=== PATIENT | female | born 1965 | race Caucasian/White ===

== ENCOUNTER 2017-09-09 18:54 | Inpatient (IN) | payer BC ==
[2017-09-09] MEDS ORDERED: SODIUM CHLORIDE 0.9% 1,000 ML IV STA (19:23)
[2017-09-09] MEDS ORDERED: KETOROLAC 30 MG/ML 1 ML VIAL IVP STA (20:10)
[2017-09-09 20:17] LABS: ALT 54 U/L (9-52); AST 111 U/L (14-36); Albumin 3.3 g/dL (3.5-5.0); Alkaline Phosphatase 388 U/L (38-126); Amylase 213 U/L (30-110); Anion Gap 11 mmol/L; Blood Urea Nitrogen 29 mg/dL (7-17); Calcium 9.3 mg/dL (8.4-10.2); Carbon Dioxide 24 mmol/L (22-30); Chloride 103 mmol/L (98-107); Glucose 180 mg/dL (74-99); Lipase 1929 U/L (23-300); Potassium 3.9 mmol/L (3.5-5.1); Sodium 138 mmol/L (137-145); Total Bilirubin 0.8 mg/dL (0.2-1.3); Total Protein 6.4 g/dL (6.3-8.2)
[2017-09-09 20:18] LABS: Anisocytosis Slight; HCT 28.5 % (34.0-46.0); HGB 9.2 gm/dL (11.4-16.0); Hypochromasia Slight; MCH 28.7 pg (25.0-35.0); MCHC 32.2 g/dL (31.0-37.0); MCV 89.3 fL (80.0-100.0); Mean Platelet Volume 8.3; Poikilocytosis Slight; RBC 3.19 m/uL (3.80-5.40)
[2017-09-09 20:35] LABS: Band Neutrophils % 9 %; Myelocytes % 3 %; Neutrophils % (M) 51 %; Nucleated Red Blood Cells 8 /100 WBC (0-0); Total Cells Counted 200
[2017-09-09 20:36] LABS: Lymphocytes # (M) 1.92 k/uL (1.0-4.8); Myelocytes # (M) 0.19 k/uL (0); Polychromasia Present; WBC 6.2 k/uL (3.8-10.6)
[2017-09-09 20:37] LABS: Platelet Count 95 k/uL (150-450)
--- NOTE | 2017-09-09 20:45 | ED ---
Abdominal Pain HPI - General Chief Complaint: Abdominal Pain Stated Complaint: Flank pain Time Seen by Provider: 09/09/17 19:20 Source: patient, RN notes reviewed Mode of arrival: ambulatory Limitations: no limitations - History of Present Illness Initial Comments: This a 52-year-old female presents emergency Department chief complaint of right sided abdominal, right flank pain. Patient states started a few hours ago. Patient states she has slight nausea denies any vomiting diarrhea constipation. She has no history of kidney stones and has had no prior abdominal surgeries. Patient is have a history of breast cancer with mastectomy. Patient denies any dysuria, hematuria. States that movement does make the symptoms worse and is better at rest. Patient has NO KNOWN DRUG ALLERGIES. - Related Data Home Medications Medication Instructions Recorded Confirmed No Known Home Medications [No 09/09/17 09/09/17 Known Home Medications] Allergies Allergy/AdvReac Type Severity Reaction Status Date / Time No Known Allergies Allergy Verified 09/09/17 19:35 Review of Systems ROS Statement: Those systems with pertinent positive or pertinent negative responses have been documented in the HPI. ROS Other: All systems not noted in ROS Statement are negative. Past Medical History Additional Past Medical History / Comment(s): Breast CA (in remission.) History of Any Multi-Drug Resistant Organisms: None Reported Additional Past Surgical History / Comment(s): Mastectomy Past Psychological History: No Psychological Hx Reported Smoking Status: Current every day smoker Past Alcohol Use History: Rare Past Drug Use History: None Reported General Exam Limitations: no limitations General appearance: alert, in no apparent distress Head exam: Present: atraumatic, normocephalic, normal inspection Eye exam: Present: normal appearance, PERRL, EOMI. Absent: scleral icterus, conjunctival injection, periorbital swelling Neck exam: Present: normal inspection. Absent: tenderness, meningismus, lymphadenopathy Respiratory exam: Present: normal lung sounds bilaterally. Absent: respiratory distress, wheezes, rales, rhonchi, stridor Cardiovascular Exam: Present: regular rate, normal rhythm, normal heart sounds. Absent: systolic murmur, diastolic murmur, rubs, gallop, clicks GI/Abdominal exam: Present: soft, tenderness (Mild right-sided, right flank), normal bowel sounds. Absent: distended, guarding, rebound, rigid Back exam: Absent: CVA tenderness (R), CVA tenderness (L) Skin exam: Present: warm, dry, intact, normal color. Absent: rash Course Vital Signs 09/09/17 19:07 Temperature 97.9 F Pulse Rate 110 H Respiratory 18 Rate Blood Pressure 105/88 O2 Sat by Pulse 98 Oximetry Medical Decision Making - Lab Data Result diagrams: 09/09/17 19:45 09/09/17 19:45 Lab Results 09/09/17 09/09/17 09/09/17 Range/Units 19:45 19:45 20:37 WBC 6.2 (3.8-10.6) k/uL RBC 3.19 L (3.80-5.40) m/uL Hgb 9.2 L (11.4-16.0) gm/dL Hct 28.5 L (34.0-46.0) % MCV 89.3 (80.0-100.0) fL MCH 28.7 (25.0-35.0) pg MCHC 32.2 (31.0-37.0) g/dL RDW 19.0 H (11.5-15.5) % Plt Count 95 L (150-450) k/uL Neutrophils % (Manual) 51 % Band Neutrophils % 9 % Lymphocytes % (Manual) 31 % Monocytes % (Manual) 8 % Myelocytes % 3 % Neutrophils # (Manual) 3.70 (1.3-7.7) k/uL Lymphocytes # (Manual) 1.92 (1.0-4.8) k/uL Monocytes # (Manual) 0.50 (0-1.0) k/uL Myelocytes # (Manual) 0.19 H (0) k/uL Nucleated RBCs 8 H (0-0) /100 WBC Manual Slide Review Performed Polychromasia Present Hypochromasia Slight Poikilocytosis Slight Anisocytosis Slight PT (9.0-12.0) sec INR (<1.2) APTT (22.0-30.0) sec Sodium 138 (137-145) mmol/L Potassium 3.9 (3.5-5.1) mmol/L Chloride 103 (98-107) mmol/L Carbon Dioxide 24 (22-30) mmol/L Anion Gap 11 mmol/L BUN 29 H (7-17) mg/dL Creatinine 0.90 (0.52-1.04) mg/dL Est GFR (MDRD) Af Amer >60 (>60 ml/min/1.73 sqM) Est GFR (MDRD) Non-Af >60 (>60 ml/min/1.73 sqM) Glucose 180 H (74-99) mg/dL Calcium 9.3 (8.4-10.2) mg/dL Total Bilirubin 0.8 (0.2-1.3) mg/dL AST 111 H (14-36) U/L ALT 54 H (9-52) U/L Alkaline Phosphatase 388 H (38-126) U/L Total Protein 6.4 (6.3-8.2) g/dL Albumin 3.3 L (3.5-5.0) g/dL Amylase 213 H (30-110) U/L Lipase 1929 H (23-300) U/L Acetaminophen <10.0 ug/mL Serum Alcohol mg/dL 09/09/17 09/09/17 Range/Units 20:40 20:56 WBC (3.8-10.6) k/uL RBC (3.80-5.40) m/uL Hgb (11.4-16.0) gm/dL Hct (34.0-46.0) % MCV (80.0-100.0) fL MCH (25.0-35.0) pg MCHC (31.0-37.0) g/dL RDW (11.5-15.5) % Plt Count (150-450) k/uL Neutrophils % (Manual) % Band Neutrophils % % Lymphocytes % (Manual) % Monocytes % (Manual) % Myelocytes % % Neutrophils # (Manual) (1.3-7.7) k/uL Lymphocytes # (Manual) (1.0-4.8) k/uL Monocytes # (Manual) (0-1.0) k/uL Myelocytes # (Manual) (0) k/uL Nucleated RBCs (0-0) /100 WBC Manual Slide Review Polychromasia Hypochromasia Poikilocytosis Anisocytosis PT 10.0 (9.0-12.0) sec INR 1.0 (<1.2) APTT 23.9 (22.0-30.0) sec Sodium (137-145) mmol/L Potassium (3.5-5.1) mmol/L Chloride (98-107) mmol/L Carbon Dioxide (22-30) mmol/L Anion Gap mmol/L BUN (7-17) mg/dL Creatinine (0.52-1.04) mg/dL Est GFR (MDRD) Af Amer (>60 ml/min/1.73 sqM) Est GFR (MDRD) Non-Af (>60 ml/min/1.73 sqM) Glucose (74-99) mg/dL Calcium (8.4-10.2) mg/dL Total Bilirubin (0.2-1.3) mg/dL AST (14-36) U/L ALT (9-52) U/L Alkaline Phosphatase (38-126) U/L Total Protein (6.3-8.2) g/dL Albumin (3.5-5.0) g/dL Amylase (30-110) U/L Lipase (23-300) U/L Acetaminophen ug/mL Serum Alcohol <10 mg/dL Disposition Clinical Impression: Abdominal pain, Pancreatitis, Liver masses, Metastatic cancer, Anemia Disposition: ADMITTED IP TO THIS [facility] Condition: Stable Referrals: None,Stated [Primary Care Provider] - 1-2 days
[2017-09-09 21:06] LABS: Appearance,Urine Clear (Clear); Bacteria,Urine Rare /hpf; Bilirubin,Urine Negative (Negative); Blood,Urine Moderate (Negative); Color,Urine Yellow; Glucose,Urine (UA) Negative (Negative); Hyaline Casts,Urine 1 /lpf (0-2); Ketones,Urine Negative (Negative); Leukocyte Esterase,Urine Negative (Negative); Mucus,Urine Rare /hpf; Nitrite,Urine Negative (Negative); PH, Urine 5.5 (5.0-8.0); Protein,Urine Trace (Negative); RBC,Urine 13 /hpf (0-5); Specific Gravity,Urine 1.015 (1.001-1.035); Squamous Epithelial Cell,Urine 1 /hpf (0-4); Urobilinogen,Urine <2.0 mg/dL (<2.0); WBC,Urine 5 /hpf (0-5)
[2017-09-09 21:22] LABS: Partial Thromboplastin Time 23.9 sec (22.0-30.0)
--- NOTE | 2017-09-09 21:37 | US ---
EXAMINATION TYPE: US abdomen limited DATE OF EXAM: 09/09/2017 COMPARISON: NONE CLINICAL HISTORY: Pain. RUQ pain x 1 day. EXAM MEASUREMENTS: Liver Length: 21.1 cm Gallbladder Wall: 0.3 cm CBD: 0.4 cm Right Kidney: 10.5 x 3.8 x 4.2 cm Pancreas: Tail obscured by overlying bowel gas Liver: Enlarged, heterogenous echotexture, multiple hypoechoic lesions seen throughout. Gallbladder: Echogenic foci seen within no shadowing. Evidence for sonographic Arthur's sign: No CBD: wnl Right Kidney: No hydronephrosis or masses seen Enlarged liver heterogenous with multiple lesions seen throughout. There is no ascites. IMPRESSION: Findings compatible with metastatic disease to the liver
[2017-09-09] MEDS ORDERED: ONDANSETRON 4 MG/2 ML VIAL IVP PRN (21:57)
[2017-09-09] MEDS ORDERED: RX INFO: IV CONTRAST WAS GIVEN 1 EACH MISC MISCELLANE PRN (22:26)
[2017-09-09] MEDS: SODIUM CHLORIDE 0.9% 1,000 ML IV SCH ×2 (22:39→23:23)
[2017-09-09 23:44] VITALS: BMI 28.8
[2017-09-10] MEDS: HYDROcodone/APAP 5-325MG 1 EACH TAB PO PRN ×5 (00:06→23:03)
[2017-09-10] MEDS: SODIUM CHLORIDE 0.9% 1,000 ML IV SCH (06:15)
[2017-09-10] MEDS: IOHEXOL 350 MG/ML 25 ML BOTTLE (ORAL USE) PO PRN ×2 (06:15→07:14)
--- NOTE | 2017-09-10 06:25 | HP ---
HISTORY AND PHYSICAL CHIEF COMPLAINT: Abdominal pain. HISTORY OF PRESENT ILLNESS: This 52-year-old woman with a past medical history of breast cancer and as well as mastectomy, history of nicotine dependence not being followed by any primary physician in the outpatient setting was complaining of right upper quadrant abdominal pain. The pain is mostly in the right side of the abdomen and right flank pain and the patient has some slight nausea. There is no vomiting or diarrhea. The patient came to [facility] and the patient underwent ultrasound of the abdomen showed enlarged liver with multiple hypoechoic lesions throughout and CAT scan has been ordered. Patient admitted for further evaluation and treatment. There is no history of any fever or rigors. No history of headache, loss of consciousness or seizures at this time. The patient also had multiple lab abnormalities also including increased amylase and lipase also. PAST MEDICAL HISTORY: History of breast cancer in remission, mastectomy, history of nicotine dependence. MEDICATIONS: Medications prior to admission include none. ALLERGIES: None. FAMILY HISTORY: History of dementia, diabetes mellitus, heart attacks, and Parkinson's. SOCIAL HISTORY: Continuing smoking. No history of alcohol intake. REVIEW OF SYSTEMS: ENT: No diminished hearing or diminished vision. CARDIOVASCULAR SYSTEM: No angina. RESPIRATORY SYSTEM: No cough or hemoptysis. GI: As mentioned earlier. : No dysuria or urinary retention. NERVOUS SYSTEM: No numbness or weakness. ALLERGY/IMMUNOLOGY: No history of asthma. MUSCULOSKELETAL: As mentioned earlier. HEMATOLOGY/ONCOLOGY: As mentioned earlier. ENDOCRINE: No history of diabetes or hypothyroidism. CONSTITUTIONAL: As mentioned earlier. DERMATOLOGY: Negative. RHEUMATOLOGY: Negative. PSYCHIATRY: As mentioned earlier. PHYSICAL EXAMINATION: The patient is alert and oriented x3. Pulse 97, blood pressure 134/62, respiration 20, temperature is 98.5, pulse ox 98% room air. HEENT: Conjunctivae normal. NECK: No jugular venous distention. CARDIOVASCULAR: S1 and S2 muffled. RESPIRATORY: Breath sounds diminished at the bases. Scattered rhonchi. No crackles. ABDOMEN: Soft, mild diffuse tenderness in the right upper quadrant present. Otherwise no ascites. LEGS: No edema, no swelling. NERVOUS SYSTEM: Higher functions as mentioned earlier. Moves all 4 limbs,. No focal motor or sensory deficit. LYMPHATICS: No lymphadenopathy of the neck, axillae or groin. SKIN: No ulcer, rash or bleeding. LABS: WBC 6.2, hemoglobin 9.2. Otherwise glucose 180, bilirubin 0.8, AST is 111, ALT is 54, alkaline phosphatase is 388. Amylase 213, lipase is 1929. UA noted. ASSESSMENT: 1. Right sided abdominal pain with multiple masses in the liver, possibly multiple hepatic metastasis. 2. History of breast cancer, status post mastectomy. 3. Elevated amylase and lipase with pancreatitis. 4. Increased AST, ALT, alkaline phosphatase. 5. History of nicotine dependence. 6. Anemia normocytic anemia of chronic disease. 7. FULL CODE. RECOMMENDATIONS AND DISCUSSION: This 52-year-old woman who presented with multiple complex medical issues, will monitor the patient closely. Continue the current medications, continue symptomatic treatment. Otherwise at this time I would recommend a CAT scan of the abdomen with contrast and symptomatic treatment of the pain. I would also recommend repeat labs. The prognosis extremely guarded because of multiple complex medical issues. We will consult Dr. Mccray and Dr. Welch. Will continue to monitor. Guarded prognosis because of multiple complex medical issues. Discussed with the patient and further recommendations to follow. The PT, INR is within normal limits. The patient will require liver biopsy for further evaluation. MMODL / IJN: [id number] /
[2017-09-10 09:16] LABS: ALT 52 U/L (9-52); AST 93 U/L (14-36); Albumin 2.7 g/dL (3.5-5.0); Alkaline Phosphatase 321 U/L (38-126); Anion Gap 7 mmol/L; Blood Urea Nitrogen 15 mg/dL (7-17); Calcium 9.2 mg/dL (8.4-10.2); Carbon Dioxide 24 mmol/L (22-30); Chloride 105 mmol/L (98-107); Glucose 128 mg/dL (74-99); Potassium 3.9 mmol/L (3.5-5.1); Sodium 136 mmol/L (137-145); Total Bilirubin 0.8 mg/dL (0.2-1.3); Total Protein 5.4 g/dL (6.3-8.2)
--- NOTE | 2017-09-10 09:20 | CT ---
EXAMINATION TYPE: CT abdomen pelvis w con DATE OF EXAM: 09/10/2017 COMPARISON: Collision ultrasound 09/09/2017 HISTORY: 52-year-old female with pain and metastatic breast cancer TECHNIQUE: Contiguous axial scanning of the abdomen and pelvis following administration of 100 ml Omn ipaque 300 IV contrast. Delayed images through the kidneys and coronal/sagittal reconstructions perf ormed. CT DLP: 728.80 mGycm Automated exposure control for dose reduction was used. FINDINGS: Heart normal size without pericardial effusion. Small hiatal hernia. There is a 1.2 cm left basilar pulmonary nodule. Trace right effusion is noted. Diffuse hepatic metastatic lesions characterized by heterogeneous hypodensity. Lesions are of highly variable size measuring up to 3.6 cm. Portal venous system is patent. No biliary ductal dilatation. Gallbladder, right adrenal gland, and pancreas show no gross abnormality. Mild diffuse thickening of the left adrenal gland without discrete nodularity. The spleen appears bulky and measures at the upper limits of normal at 13.1 cm craniocaudal on [place] l series. No dilated small bowel, free fluid, or free air. Tiny fatty umbilical hernia. No mesenteric or retroperitoneal lymphadenopathy. Oral contrast has progressed to the cecum. There is mild to moderate stool in the right hemicolon. Mi nimal strandy edema/fluid tracking down into the right side of the pelvis. Uterus and ovaries are vis ualized. Some prominent but nonenlarged left inguinal lymph nodes. Bones: Diffuse mixed osteosclerotic and lytic lesions throughout the visualized skeleton. There is os seous erosion with associated 3.3 cm soft tissue mass in the left side of the sacrum, coronal image 6 4 and axial image 65. Overall vertebral body heights are maintained at this time. IMPRESSION: 1. DIFFUSE METASTATIC STUDDING OF THE LIVER. LESIONS ARE VARIABLE SIZE MEASURING UP TO 2.6 CM. 2. DIFFUSE OSSEOUS METASTATIC DISEASE WITH MIXED SCLEROTIC AND LYTIC LESIONS. THERE IS ASSOCIATED SOF T TISSUE COMPONENT MEASURING 3.3 CM ERODING THE LEFT SACRUM. 3. A NONSPECIFIC 1.2 CM LEFT BASILAR PULMONARY NODULE MAY ALSO REPRESENT METASTATIC DISEASE. 4. TRACE RIGHT EFFUSION AND TRACE RIGHT-SIDED FREE FLUID TRACKING INTO THE PELVIS. BOTH LIKELY REACTI VE.
[2017-09-10] MEDS ORDERED: RX INFO: IV CONTRAST WAS GIVEN 1 EACH MISC MISCELLANE PRN (09:36)
[2017-09-10] MEDS: PANTOPRAZOLE 40 MG/10 ML VIAL IVP SCH (09:53)
--- NOTE | 2017-09-10 10:57 | P.CONS ---
History of Present Illness - Reason for Consult Consult date: 09/10/17 Pancreatitis hepatic masses Requesting physician: Simran Ferrari - History of Present Illness 52-year-old female with a past history of breast carcinoma s/p mastectomy chemoradiation about 6 years ago, nicotine cigarette dependency presents with right sided/right flank abdominal pain lower back with nausea x 1 day. Denies hematemesis hematochezia melena fever or chills. Unintentional 20 pound weight loss. Ultrasound abdomen findings compatible with metastatic disease to the liver. CBD 0.[address] abdomen and pelvis 1.2 cm left basilar pulmonary nodule with trace right effusion. Diffuse hepatic metastatic lesions measuring up to 3.6 cm. Portal venous system patent. No biliary ductal dilatation. No gross abnormality seen in the gallbladder right adrenal gland and pancreas. Diffuse osseous metastatic disease with mixed sclerotic and lytic lesions associated soft tissue component measuring 3.3 cm eroding the left sacrum. A nonspecific 1.2 cm left basilar pulmonary nodule may also represent metastatic disease. White count 6.2. Hemoglobin 9.2. Platelet 95. INR 1.0. Total bilirubin 0.8. AST 93-111. ALT 52-54. Alkaline phosphatase 321-388. Lipase 1929. Amylase 218. Review of Systems Constitutional: Denies fever, chills, sweats, weight gain, or loss. HEENT: Negative for migraines, blurred vision or loss, earaches, drainage, tinnitus, oral mucosal lesions, dysphagia, or odynophagia. CARDIAC: Negative for chest pain, arrhythmias, or palpitation. RESPIRATORY: Nicotine cigarette dependency. Negative for shortness of breath, hemoptysis, cough, or sputum production. GI: See HPI for pertinent findings. : Negative for hematuria, urgency, frequency, polyuria, or dysuria. GYNc: . Negative vaginal discharge. MUSCULOSKELETAL: Negative for muscle aches, swelling, arthritis, and arthralgias. NEUROLOGIC: Negative for stroke or TIA. ENDOCRINE: Negative for thyroid problems. Hematologic: History of breast carcinoma. SKIN: Negative for rash or itching. PSYCHIATRIC: Negative history for depression and anxiety Past Medical History Additional Past Medical History / Comment(s): Breast CA (in remission.) History of Any Multi-Drug Resistant Organisms: None Reported Additional Past Surgical History / Comment(s): Mastectomy (2011) Past Anesthesia/Blood Transfusion Reactions: Unable to Obtain Additional Past Anesthesia/Blood Transfusion Reaction / Comm: no transfusion history Past Psychological History: No Psychological Hx Reported Smoking Status: Current every day smoker Past Alcohol Use History: Rare Past Drug Use History: None Reported - Past Family History Father Additional Family Medical History / Comment(s): heart attack, parkinson's Mother Family Medical History: Dementia, Diabetes Mellitus Sister(s) Family Medical History: Diabetes Mellitus Medications and Allergies Home Medications Medication Instructions Recorded Confirmed Type No Known Home Medications [No 09/09/17 09/09/17 History Known Home Medications] Allergies Allergy/AdvReac Type Severity Reaction Status Date / Time No Known Allergies Allergy Verified 09/09/17 19:35 Physical Exam Vitals: Vital Signs Temp Pulse Pulse Resp BP BP Pulse Ox 09/10/17 07:00 98.9 F 99 18 136/65 94 L 09/09/17 23:19 98.4 F 96 16 132/73 97 09/09/17 22:30 98.5 F 97 20 134/62 98 09/09/17 19:07 97.9 F 110 H 18 105/88 98 Intake and Output 09/09/17 09/10/17 09/10/17 22:59 06:59 14:59 Other: Voiding Method Toilet # Voids 1 Weight 73.799 kg 73.799 kg General appearance: The patient is alert, oriented, in no acute distress. HET: Head is normocephalic and atraumatic. Pupils are equal and reactive. Oropharynx is clear without lesions. Neck: Supple without lymphadenopathy. Trachea midline. Heart: S1 S2. Regular rate and rhythm. Lungs: No crackles or wheezes are heard. Abdomen: Soft, tender RUQ/RLQ, nondistended with bowel sounds. No peritoneal signs. No palpable organomegaly or masses. Extremities: Normal skin color and turgor. No cyanosis, rash, ulceration, clubbing, or edema. Radial and pedal pulses are 2/4 bilaterally. Neurological: No focal deficits. Strength and sensation are grossly intact. Results CBC & Chem 7: 09/11/17 07:29 09/11/17 07:29 Labs: Abnormal Lab Results - Last 24 Hours (Table) 09/09/17 09/09/17 09/09/17 Range/Units 19:45 19:45 20:37 RBC 3.19 L (3.80-5.40) m/uL Hgb 9.2 L (11.4-16.0) gm/dL Hct 28.5 L (34.0-46.0) % RDW 19.0 H (11.5-15.5) % Plt Count 95 L (150-450) k/uL Myelocytes # (Manual) 0.19 H (0) k/uL Nucleated RBCs 8 H (0-0) /100 WBC Sodium (137-145) mmol/L BUN 29 H (7-17) mg/dL Glucose 180 H (74-99) mg/dL AST 111 H (14-36) U/L ALT 54 H (9-52) U/L Alkaline Phosphatase 388 H (38-126) U/L Total Protein (6.3-8.2) g/dL Albumin 3.3 L (3.5-5.0) g/dL Amylase 213 H (30-110) U/L Lipase 1929 H (23-300) U/L Urine Protein Trace H (Negative) Urine Blood Moderate H (Negative) Urine RBC 13 H (0-5) /hpf Urine Bacteria Rare H (None) /hpf Urine Mucus Rare H (None) /hpf 09/10/17 Range/Units 08:36 RBC (3.80-5.40) m/uL Hgb (11.4-16.0) gm/dL Hct (34.0-46.0) % RDW (11.5-15.5) % Plt Count (150-450) k/uL Myelocytes # (Manual) (0) k/uL Nucleated RBCs (0-0) /100 WBC Sodium 136 L (137-145) mmol/L BUN (7-17) mg/dL Glucose 128 H (74-99) mg/dL AST 93 H (14-36) U/L ALT (9-52) U/L Alkaline Phosphatase 321 H (38-126) U/L Total Protein 5.4 L (6.3-8.2) g/dL Albumin 2.7 L (3.5-5.0) g/dL Amylase (30-110) U/L Lipase (23-300) U/L Urine Protein (Negative) Urine Blood (Negative) Urine RBC (0-5) /hpf Urine Bacteria (None) /hpf Urine Mucus (None) /hpf CT scan - abdomen: report reviewed (Dr. Haines) US - abdomen: report reviewed (Dr Haines) Assessment and Plan (1) Liver masses Narrative/Plan: 52-year-old female with a history of breast carcinoma presents with right-sided flank abdominal pain with elevated transaminases pancreatic enzymes with radiographic imaging reporting multiple hepatic masses, diffuse osseous sclerotic and lytic lesions suspicious for metastatic disease, primary unknown. Current Visit: Yes Status: Acute Code(s): R16.0 - HEPATOMEGALY, NOT ELSEWHERE CLASSIFIED SNOMED Code(s): 703822457 (2) Pancreatitis Narrative/Plan: Etiology unclear no history of ETOH abuse no mentioning of cholelithiasis on radiographic imaging. Current Visit: Yes Status: Acute Code(s): K85.90 - ACUTE PANCREATITIS WITHOUT NECROSIS OR INFECTION, UNSP SNOMED Code(s): 42467992 (3) History of breast cancer Current Visit: Yes Status: Chronic Priority: High Code(s): Z85.3 - PERSONAL HISTORY OF MALIGNANT NEOPLASM OF BREAST SNOMED Code(s): 445138454 (4) Thrombocytopenia Current Visit: Yes Status: Acute Code(s): D69.6 - THROMBOCYTOPENIA, UNSPECIFIED SNOMED Code(s): 661360318 Plan: 1. Patient has been evaluated by oncology CT of the chest has been ordered. Liver biopsy ordered. 2. CEA. Ca 19-9. AFP. Hepatitis screen. 3. Supportive measures. Diet as tolerated. We'll follow with you. Thank you for this kind referral and the opportunity to participate in the care of your patient. This consultation was discussed with Dr. Haines. The impression and plan of care have been directed as dictated.
[2017-09-10 12:11] LABS: Hepatitis A Antibody IgM Non-Reactive (Non-Reactive); Hepatitis B Core IgM Non-Reactive (Non-Reactive)
[2017-09-10] MEDS: HYDROmorphone 0.5 MG/0.5 ML SYRINGE IVP PRN (14:29)
--- NOTE | 2017-09-10 16:14 | US ---
EXAMINATION TYPE: US biopsy liver DATE OF EXAM: 09/10/2017 HISTORY: Liver masses. FINDINGS: Maximal barrier technique was utilized. The skin overlying a suitable path to the patient' s mass was localized with ultrasound and the overlying skin prepped and draped. Ultrasound was utili zed with sterile technique. Lidocaine was used for local anesthesia. A skin william was made with a sc alpel. An 18-gauge needle was advanced under direct ultrasound guidance and core specimen obtained o f the left lobe liver mass. Specimen submitted in formalin to Pathology. Following the procedure, h emostasis achieved and the patient is discharged in stable condition without complication. IMPRESSION:STATUS POST ULTRASOUND GUIDED CORE BIOPSY OF liver MASS, PATHOLOGY IS PENDING. THIS PROCE DURE IS PERFORMED BY THE UNDERSIGNED.
--- NOTE | 2017-09-10 18:29 | P.CONS ---
History of Present Illness - Reason for Consult Consult date: 09/10/17 Hepatic Lesions, history of breast cancer Requesting physician: Lux Barbour - Chief Complaint New Hepatic Lesions - History of Present Illness Pt is a very pleasant 52 year old female patient who was diagnosed with stage IIIA,ER/OK+,HER2/MALENA negative, left breast cancer in April 2011. She had a left mastectomy and axillary nodes dissection, completed 6 cycles of taxotere and cytoxan in September 2011 and completed adjuvant radiation therapy in November 2011, been on tamoxifen since December 2011 and was last seen by Dr. Mccray in 2016. Pt presented to [facility] ER after complaining of severe abdominal and back pain, onset last night, worse with movement, better if just lays still, more tired and feeling weak, no other associated symptoms reported. CT AP done, results were pending at time of exam. Pt did not c/o fevers, sweats, significant wt. loss, appetite fair, no acute changes in bowel or bladder habits. Review of Systems A 14 point review of systems assessed and completed and all negative except HPI Constitutional: Reports chronic pain, Reports daytime sleepiness Past Medical History Past Medical History: Cancer Additional Past Medical History / Comment(s): Breast CA (in remission.) History of Any Multi-Drug Resistant Organisms: None Reported Past Surgical History: Breast Surgery Additional Past Surgical History / Comment(s): Mastectomy (2011) Past Anesthesia/Blood Transfusion Reactions: Unable to Obtain Additional Past Anesthesia/Blood Transfusion Reaction / Comm: no transfusion history Past Psychological History: No Psychological Hx Reported Smoking Status: Current every day smoker Past Alcohol Use History: Unable to Obtain, Rare Past Drug Use History: None Reported - Past Family History Father Additional Family Medical History / Comment(s): heart attack, parkinson's Mother Family Medical History: Dementia, Diabetes Mellitus Sister(s) Family Medical History: Diabetes Mellitus Medications and Allergies Home Medications Medication Instructions Recorded Confirmed Type No Known Home Medications [No 09/09/17 09/09/17 History Known Home Medications] Allergies Allergy/AdvReac Type Severity Reaction Status Date / Time No Known Allergies Allergy Verified 09/09/17 19:35 Physical Exam Vitals: Vital Signs Temp Pulse Pulse Pulse Resp BP BP 09/10/17 15:31 97 16 117/63 09/10/17 15:28 95 16 116/62 09/10/17 15:13 91 16 113/56 09/10/17 14:47 98 F 98 18 09/10/17 08:00 18 09/10/17 07:00 98.9 F 99 18 09/09/17 23:19 98.4 F 96 16 09/09/17 22:30 98.5 F 97 20 134/62 09/09/17 19:07 97.9 F 110 H 18 105/88 BP Pulse Ox 09/10/17 15:31 94 L 09/10/17 15:28 92 L 09/10/17 15:13 93 L 09/10/17 14:47 133/60 97 09/10/17 08:00 09/10/17 07:00 136/65 94 L 09/09/17 23:19 132/73 97 09/09/17 22:30 98 09/09/17 19:07 98 Intake and Output 09/10/17 09/10/17 09/10/17 06:59 14:59 22:59 Other: Voiding Method Toilet Toilet # Voids 1 2 Weight 73.799 kg - Constitutional General appearance: cooperative, no acute distress - EENT Eyes: poor dentition, normal appearance ENT: normal oropharynx - Neck Neck: no lymphadenopathy - Respiratory Respiratory: bilateral: CTA, diminished - Cardiovascular Tachycaardia Heart sounds: normal: S1, S2 leg Peripheral Edema: bilateral: None - Gastrointestinal General gastrointestinal: distended, hepatomegaly, tenderness - Integumentary Integumentary: pale - Neurologic no focal defects - Musculoskeletal Musculoskeletal: generalized weakness - Psychiatric Appeared lethargic, although appropriate Psychiatric: A&O x's 3, appropriate affect, intact judgment & insight Results CBC & Chem 7: 09/09/17 19:45 09/10/17 08:36 Labs: Abnormal Lab Results - Last 24 Hours (Table) 09/09/17 09/09/17 09/09/17 Range/Units 19:45 19:45 20:37 RBC 3.19 L (3.80-5.40) m/uL Hgb 9.2 L (11.4-16.0) gm/dL Hct 28.5 L (34.0-46.0) % RDW 19.0 H (11.5-15.5) % Plt Count 95 L (150-450) k/uL Myelocytes # (Manual) 0.19 H (0) k/uL Nucleated RBCs 8 H (0-0) /100 WBC Sodium (137-145) mmol/L BUN 29 H (7-17) mg/dL Glucose 180 H (74-99) mg/dL AST 111 H (14-36) U/L ALT 54 H (9-52) U/L Alkaline Phosphatase 388 H (38-126) U/L Total Protein (6.3-8.2) g/dL Albumin 3.3 L (3.5-5.0) g/dL Amylase 213 H (30-110) U/L Lipase 1929 H (23-300) U/L Urine Protein Trace H (Negative) Urine Blood Moderate H (Negative) Urine RBC 13 H (0-5) /hpf Urine Bacteria Rare H (None) /hpf Urine Mucus Rare H (None) /hpf 09/10/17 09/10/17 Range/Units 08:36 08:36 RBC (3.80-5.40) m/uL Hgb (11.4-16.0) gm/dL Hct (34.0-46.0) % RDW (11.5-15.5) % Plt Count (150-450) k/uL Myelocytes # (Manual) (0) k/uL Nucleated RBCs (0-0) /100 WBC Sodium 136 L (137-145) mmol/L BUN (7-17) mg/dL Glucose 128 H (74-99) mg/dL AST 93 H (14-36) U/L ALT (9-52) U/L Alkaline Phosphatase 321 H (38-126) U/L Total Protein 5.4 L (6.3-8.2) g/dL Albumin 2.7 L (3.5-5.0) g/dL Amylase (30-110) U/L Lipase 3156 H (23-300) U/L Urine Protein (Negative) Urine Blood (Negative) Urine RBC (0-5) /hpf Urine Bacteria (None) /hpf Urine Mucus (None) /hpf CT scan - abdomen: report reviewed CT scan - pelvis: report reviewed Assessment and Plan (1) Liver masses Narrative/Plan: Requested IR to biopsy of liver lesions, presentation is concerning for malignant process, especially with history of breast cancer. Will obtain CT chest for full staging work-up after biopsy done Current Visit: Yes Status: Acute Code(s): R16.0 - HEPATOMEGALY, NOT ELSEWHERE CLASSIFIED SNOMED Code(s): 189624057 (2) Bone metastases Narrative/Plan: Likely underlying metastatic presentation, diagnostic biopsy of liver lesions to determine primary Current Visit: Yes Status: Acute Priority: High Code(s): C79.51 - SECONDARY MALIGNANT NEOPLASM OF BONE SNOMED Code(s): 51997955 (3) Anemia Narrative/Plan: Anemia work-up ordered Current Visit: Yes Status: Acute Priority: Medium Code(s): D64.9 - ANEMIA , UNSPECIFIED SNOMED Code(s): 835051581 (4) Metastatic cancer Current Visit: Yes Status: Acute Code(s): C79.9 - SECONDARY MALIGNANT NEOPLASM OF UNSPECIFIED SITE SNOMED Code(s): 684258118 (5) Pancreatitis Narrative/Plan: GI Following, monitoring pancreatic enzymes and liver enzymes Current Visit: Yes Status: Acute Code(s): K85.90 - ACUTE PANCREATITIS WITHOUT NECROSIS OR INFECTION, UNSP SNOMED Code(s): 95964895 (6) History of breast cancer Narrative/Plan: History of stage III ER Positive [id number] breast Cancer in 2011 with treatment as stated in HPI, tumor markers ordered with concerning picture of metastatic cancer. Current Visit: Yes Status: Chronic Priority: High Code(s): Z85.3 - PERSONAL HISTORY OF MALIGNANT NEOPLASM OF BREAST SNOMED Code(s): 635282735 Plan: Physician Attestation: I have performed the history and examination of this patient and discussed with the narrator. I agree with the dictators note as documented as a scribe.
--- NOTE | 2017-09-10 19:25 | PN ---
PROGRESS NOTE DATE OF SERVICE: 09/10/2017. INTERVAL HISTORY: This 52-year-old woman who was admitted with the patient's abdominal pain also had multiple hepatic lesions, possible hepatic metastasis. The liver biopsy is being planned today, which was done by Dr. Ruffin which was done ultrasound guided. The patient was also seen by the Gastroenterology. Patient also had elevated amylase and lipase also. Gastroenterology is following the patient closely. CT scan of the chest is pending and abdominal pelvis CAT scan was done which showed diffuse metastatic lesions and diffuse metastatic lesions in and mid sclerotic lytic lesions, nonspecific 1.2 cm pulmonary nodules as well, trace pleural effusion as well. PAST MEDICAL HISTORY: Reviewed. REVIEW OF SYMPTOMS: Cardiovascular no angina. No palpitations. Respiration as mentioned earlier. GI as mentioned earlier. :No dysuria. Central nervous system: No numbness, weakness. CURRENT MEDICATIONS: 1. [place] 5 mg q.4h. 2. Dilaudid p.r.n. 3. Zofran. 4. Protonix. PHYSICAL EXAM: Patient is alert, oriented x3. Pulse is 94, blood pressure 120/60, respirations 16, temperature 98.2, pulse ox 94% on room air. HEENT: Conjunctivae normal. Neck: No jugular venous distention. Cardiovascular: S1, S2 muffled. Respiration: Breath sounds diminished in the bases. A few scattered rhonchi. No crackles. ABDOMEN: Soft. Minimal diffuse tenderness present on the right upper quadrant. No guarding. No rigidity. No mass palpable. Nervous system: Higher functions as mentioned earlier, moves all 4 limbs, no focal deficits. Lymphatics: No lymph nodes palpable in the neck, axillae or groin. Skin no ulcer, rash or bleeding. LAB STUDIES: Hemoglobin 9.2, sodium 136, otherwise glucose 128 and AST is 93, alkaline phosphatase is 321, albumin is 2.7. 3156. UA noted. Alcohol less than 10. The hepatitis panel is nonreactive. ASSESSMENT: 1. Right-sided abdominal pain with multiple hepatic masses status post ultrasound- guided biopsy. 2. Diffuse metastasis. 3. History of breast cancer status post mastectomy. 4. Elevated amylase, lipase, possible acute pancreatitis. 5. Increased AST, ALT, alkaline phosphatase, secondary to METS. 6. History of nicotine dependence. 7. Anemia, normocytic anemia of chronic disease. 8. FULL CODE. RECOMMENDATIONS AND DISCUSSION: In this 52-year-old woman who presented with multiple complex medical issues, we will monitor the patient closely, continue the current medications, management and symptomatic treatment. and I would recommend repeat labs. Repeat CMP and amylase, lipase also. Otherwise CEA, CA99 and CA153 and CA27.29 was also ordered. Overall prognosis guarded because of multiple complex medical issues and further recommendations to follow. Discussed with the patient. Discussed with family. JOSE / ALEXANDREN: [id number] / BEN
[2017-09-10 19:40] LABS: Alpha Fetoprotein, Tumor Mkr <1.3 ng/mL (0.0-7.9)
[2017-09-11] MEDS: HYDROcodone/APAP 5-325MG 1 EACH TAB PO PRN ×4 (03:58→21:30)
[2017-09-11] MEDS: PANTOPRAZOLE 40 MG/10 ML VIAL IVP SCH (07:33)
[2017-09-11] MEDS: SODIUM CHLORIDE 0.9% 1,000 ML IV SCH ×2 (07:35→16:00)
[2017-09-11 07:54] LABS: Anisocytosis Slight; HCT 26.7 % (34.0-46.0); HGB 8.2 gm/dL (11.4-16.0); Hypochromasia Moderate; MCH 28.4 pg (25.0-35.0); MCHC 30.7 g/dL (31.0-37.0); MCV 92.4 fL (80.0-100.0); Mean Platelet Volume 8.6; Poikilocytosis Slight; RBC 2.88 m/uL (3.80-5.40); RDW 19.5 % (11.5-15.5)
[2017-09-11 08:06] LABS: ALT 42 U/L (9-52); AST 72 U/L (14-36); Albumin 2.7 g/dL (3.5-5.0); Alkaline Phosphatase 324 U/L (38-126); Amylase 178 U/L (30-110); Anion Gap 7 mmol/L; Blood Urea Nitrogen 10 mg/dL (7-17); Calcium 9.2 mg/dL (8.4-10.2); Carbon Dioxide 26 mmol/L (22-30); Chloride 107 mmol/L (98-107); Glucose 99 mg/dL (74-99); Lipase 1885 U/L (23-300); Potassium 3.9 mmol/L (3.5-5.1); Sodium 140 mmol/L (137-145); Total Bilirubin 0.7 mg/dL (0.2-1.3); Total Protein 5.6 g/dL (6.3-8.2)
[2017-09-11 08:11] LABS: Platelet Count 94 k/uL (150-450)
[2017-09-11] MEDS: HYDROmorphone 0.5 MG/0.5 ML SYRINGE IVP PRN ×5 (09:26→23:35)
--- NOTE | 2017-09-11 09:36 | P.PN ---
Subjective Progress Note Date: 09/11/17 Principal diagnosis: Abdominal pain multiple hepatic masses Status post liver biopsy. CT chest and bone scan scheduled today. Still reports right-sided/right upper quadrant abdominal pain. Afebrile. Lipase peaked 3156 yesterday presently 1885. LFTs relatively unchanged from yesterday. CA-19-9 83. CEA 1175. AFP less than 1.3. Hepatitis screen nonreactive. Objective - Vital Signs Vital signs: Vital Signs Temp 98 F 09/11/17 08:34 Pulse 103 H 09/11/17 08:34 Resp 18 09/11/17 08:34 BP 140/62 09/11/17 08:34 Pulse Ox 92 L 09/11/17 08:34 Intake & Output 09/10/17 09/11/17 09/11/17 18:59 06:59 18:59 Intake Total 800 Balance 800 Weight 73.799 kg Intake: Intake, IV Titration 800 Amount Sodium Chloride 0.9% 1, 800 000 ml @ 100 mls/hr IV . Q10H GINA Rx#:[id number] Other: Voiding Method Toilet Toilet # Voids 2 1 - Exam NGeneral appearance: The patient is alert, oriented, in no acute distress. HET: Head is normocephalic and atraumatic. Pupils are equal and reactive. Oropharynx is clear without lesions. Neck: Supple without lymphadenopathy. Trachea midline. Heart: S1 S2. Regular rate and rhythm. Lungs: No crackles or wheezes are heard. Abdomen: Soft, right upper quadrant right mid quadrant tenderness, nondistended with bowel sounds. No peritoneal signs. No palpable organomegaly or masses. Extremities: Normal skin color and turgor. No cyanosis, rash, ulceration, clubbing, or edema. Radial and pedal pulses are 2/4 bilaterally. Neurological: No focal deficits. Strength and sensation are grossly intact. - Labs CBC & Chem 7: 09/11/17 07:29 09/11/17 07:29 Labs: Abnormal Lab Results - Last 24 Hours (Table) 09/10/17 09/10/17 09/10/17 Range/Units 08:36 08:36 08:36 RBC (3.80-5.40) m/uL Hgb (11.4-16.0) gm/dL Hct (34.0-46.0) % MCHC (31.0-37.0) g/dL RDW (11.5-15.5) % Plt Count (150-450) k/uL Creatinine (0.52-1.04) mg/dL AST (14-36) U/L Alkaline Phosphatase (38-126) U/L Total Protein (6.3-8.2) g/dL Albumin (3.5-5.0) g/dL Amylase (30-110) U/L Lipase 3156 H (23-300) U/L Carcinoembryonic Ag 1175.2 H (0.0-4.9) ng/mL CA 19-9 Antigen 83.3 H (0.0-34.9) U/mL 09/11/17 09/11/17 Range/Units 07:29 07:29 RBC 2.88 L (3.80-5.40) m/uL Hgb 8.2 L (11.4-16.0) gm/dL Hct 26.7 L (34.0-46.0) % MCHC 30.7 L (31.0-37.0) g/dL RDW 19.5 H (11.5-15.5) % Plt Count 94 L (150-450) k/uL Creatinine 0.51 L (0.52-1.04) mg/dL AST 72 H (14-36) U/L Alkaline Phosphatase 324 H (38-126) U/L Total Protein 5.6 L (6.3-8.2) g/dL Albumin 2.7 L (3.5-5.0) g/dL Amylase 178 H (30-110) U/L Lipase 1885 H (23-300) U/L Carcinoembryonic Ag (0.0-4.9) ng/mL CA 19-9 Antigen (0.0-34.9) U/mL Assessment and Plan (1) Liver masses Narrative/Plan: 52-year-old female with a history of breast carcinoma presents with right-sided flank abdominal pain with elevated transaminases pancreatic enzymes with radiographic imaging reporting multiple hepatic masses, diffuse osseous sclerotic and lytic lesions suspicious for metastatic disease, primary unknown. Current Visit: Yes Status: Acute Code(s): R16.0 - HEPATOMEGALY, NOT ELSEWHERE CLASSIFIED SNOMED Code(s): 299689912 (2) Pancreatitis Current Visit: Yes Status: Acute Code(s): K85.90 - ACUTE PANCREATITIS WITHOUT NECROSIS OR INFECTION, UNSP SNOMED Code(s): 83526928 (3) History of breast cancer Current Visit: Yes Status: Chronic Priority: High Code(s): Z85.3 - PERSONAL HISTORY OF MALIGNANT NEOPLASM OF BREAST SNOMED Code(s): 398209738 (4) Thrombocytopenia Current Visit: Yes Status: Acute Code(s): D69.6 - THROMBOCYTOPENIA, UNSPECIFIED SNOMED Code(s): 475233613 Plan: 1. Patient has been evaluated by oncology CT of the chest bone scan has been ordered. Liver biopsy completed biopsies pending. 2. CEA. Ca 19-9. AFP. Hepatitis screen reviewed. Repeat pancreatic enzymes in a.m. 3. Supportive measures. Light Diet as tolerated. We'll follow with you. Assessment and plan of care discussed with Dr. Haines
[2017-09-11 11:00] LABS: Iron Saturation 15.12 (12.00-45.00)
[2017-09-11 11:08] LABS: Reticulocyte % 3.1 % (0.5-2.0)
[2017-09-11 11:17] LABS: Band Neutrophils % 8 %; Metamyelocytes # (M) 0.13 k/uL (0); Metamyelocytes % 2 %; Myelocytes % 1 %; Neutrophils % (M) 47 %; Nucleated Red Blood Cells 5 /100 WBC (0-0); Promyelocytes % 1 %; Total Cells Counted 200
[2017-09-11 11:18] LABS: Blast Cells # (M) 0.06 k/uL (0); Eosinophils # (M) 0.19 k/uL (0-0.7); Lymphocytes # (M) 1.98 k/uL (1.0-4.8); Monocytes # (M) 0.58 k/uL (0-1.0); Myelocytes # (M) 0.06 k/uL (0); Promyelocytes # (M) 0.06 k/uL (0); WBC 6.4 k/uL (3.8-10.6)
[2017-09-11 11:19] LABS: Polychromasia Present
--- NOTE | 2017-09-11 11:20 | CT ---
EXAMINATION TYPE: CT chest w con DATE OF EXAM: 09/11/2017 COMPARISON: 06/19/2011 HISTORY: Follow up breast cancer. CT DLP: 539 mGycm, Automated exposure control for dose reduction was used. CONTRAST: Performed injected with 100 mL of Omnipaque 300. TECHNIQUE: Axial images were obtained at 5 mm thick sections. Reconstructed images are reviewed on [employer] computer in the coronal plane. FINDINGS: Portion of the thyroid visualized is normal. In the left mastectomy. There is a small area of increased density in the anterior left apex. This measures 0.8 cm and is new from 2010. Some peripheral anterior upper left apical thickening is present. There is some pleural thickening with stranding in the lingula. There is a tiny nodule measuring 0.4 cm in the posterior left midlung. Series 3 image 29 There is a small left pleural effusion. Some compressive atelectasis is adjacent. There is an enlarged left infrahilar lymph node measuring 1.8 cm. Series 3 image 28 Scattered small mediastinal lymph nodes are present. The ascending aorta diameter at the level of the main pulmonary artery is 3.2 cm. The main pulmonary artery diameter at the bifurcation is 2.[address] sections are obtained through the upper abdomen. Mild diffuse thickening through the left adrenal gland may be present with thickness of 1.4 cm. There is some patchy distribution of contrast within the spleen which appears somewhat prominent within the [id number] during this phase of cont rast. Multiple hypodensities are scattered throughout the liver suspicious for neoplasm. Large area m easures 3.2 cm in the anterior left mid liver. Multiple smaller extensive hypodensity suspicious for metastatic disease are within right lobe liver. IMPRESSIONS: 1. Multiple suspected hepatic metastases present on the 09/10/2017 CT abdomen pelvis. 2. Left infrahilar 1.8 cm lymph node. 3. Small right pleural effusion. 4. Left apical nodularity with indistinct margins. Metastasis is not excluded
--- NOTE | 2017-09-11 11:42 | NM ---
EXAMINATION TYPE: NM bone scan whole body DATE OF EXAM: 09/11/2017 COMPARISON: CT 10/08/2017, 09/11/2017 HISTORY: Metastatic disease Delayed whole-body scanning was performed following the injection of 21.5 mCi Tc 99m MDP. Images acq uired 3 hours post injection. FINDINGS: Diffuse abnormal increased uptake is present throughout the skeleton. Some relative increased uptake in the left sacrum is noted compatible with patient's CT findings. Soft tissues show diminished uptak e. IMPRESSION: Findings compatible with diffuse metastatic disease, SuperScan.
--- NOTE | 2017-09-11 17:59 | PN ---
PROGRESS NOTE DATE OF SERVICE: 09/11/2017. INTERVAL HISTORY: This 52-year-old woman is admitted with possibly hepatic mets for liver by biopsy. The patient also had a bone scan today and the bone scan showed diffuse metastatic lesions. Chest CT was also done which showed multiple suspected hepatic mets and infrahilar 1.8 lymph nodes and left axilla nodularity also. The patient is being closely monitored. No chest pain. No palpitations. No fever. PHYSICAL EXAM: Alert and oriented. Pulse 95, blood pressure 120/80, respirations 18, temperature 98 degrees, pulse ox 94% on room air. HEENT: Conjunctivae normal. NECK: No JVD. CARDIOVASCULAR: S1 and S2 muffled. LUNGS: Breath sounds diminished at the bases. Few rhonchi and crackles. ABDOMEN: Soft. Minimal tenderness in the right upper quadrant. NERVOUS SYSTEM: No focal deficits. LABS: White count 6.2, hemoglobin 8.2. Otherwise other labs noted. Retic count is 3.1 and ferritin is 2488. Amylase 178, lipase 1885. CA 19-9 is 83. CEA is 1175. The abdominal and pelvis CT scan showed diffuse metastases of the liver and diffuse metastatic lesions and nonspecific is 1.7 baseline pulmonary nodule and right pleural effusion. ASSESSMENT: 1. Right-sided abdominal pain with multiple hepatic metastases, status post ultrasound- guided liver biopsy. 2. Diffuse skeletal hepatic metastases. 3. History of breast cancer status post mastectomy. 4. Elevated amylase and lipase, possibly acute pancreatitis present on admission. 5. Increased AST, ALT, alkaline phosphatase secondary to metastases. 6. History of nicotine dependence. 7. Anemia, normocytic anemia of chronic disease. 8. FULL CODE. RECOMMENDATIONS: Current medications and continue with monitoring and symptomatic treatment. Otherwise at this time await biopsy report. Follow closely with Oncology. The tumor markers are elevated. The prognosis is guarded because of multiple complex medical issues. Further recommendations to follow. MMODL / IJN: [id number] / MTDD
[2017-09-11 22:05] VITALS: TEMP 98.4
[2017-09-12] MEDS: HYDROcodone/APAP 5-325MG 1 EACH TAB PO PRN ×2 (01:47→09:04)
[2017-09-12] MEDS: HYDROmorphone 0.5 MG/0.5 ML SYRINGE IVP PRN ×3 (02:18→11:48)
[2017-09-12] MEDS: SODIUM CHLORIDE 0.9% 1,000 ML IV SCH ×2 (05:56→11:25)
[2017-09-12 07:52] VITALS: BP 132/70; PULSE 99; RESP 18
--- NOTE | 2017-09-12 08:40 | P.PN ---
Subjective Progress Note Date: 09/12/17 Principal diagnosis: Abdominal pain multiple hepatic masses Status post liver biopsy, CT chest and bone scan. Mild right-sided/right upper quadrant abdominal pain. Afebrile. Tolerating full liquids requesting advancement. Liver pathology pending. Bone scan suggestive of metastatic bone disease. CT chest could not exclude left apical metastatic lesion. Objective - Vital Signs Vital signs: Vital Signs Temp 98.4 F 09/12/17 07:49 Pulse 99 09/12/17 07:49 Resp 18 09/12/17 07:49 BP 132/70 09/12/17 07:49 Pulse Ox 93 L 09/12/17 07:49 Intake & Output 09/11/17 09/12/17 09/12/17 18:59 06:59 18:59 Intake Total 2520 Balance 2520 Intake: Intake, IV Titration 600 Amount Sodium Chloride 0.9% 1, 600 000 ml @ 100 mls/hr IV . Q10H GINA Rx#:[id number] Oral 1920 Other: Voiding Method Toilet Toilet # Voids 3 2 - Exam NGeneral appearance: The patient is alert, oriented, in no acute distress. HET: Head is normocephalic and atraumatic. Pupils are equal and reactive. Oropharynx is clear without lesions. Neck: Supple without lymphadenopathy. Trachea midline. Heart: S1 S2. Regular rate and rhythm. Lungs: No crackles or wheezes are heard. Abdomen: Soft, right upper quadrant right mid quadrant tenderness, nondistended with bowel sounds. No peritoneal signs. No palpable organomegaly or masses. Extremities: Normal skin color and turgor. No cyanosis, rash, ulceration, clubbing, or edema. Radial and pedal pulses are 2/4 bilaterally. Neurological: No focal deficits. Strength and sensation are grossly intact. - Labs CBC & Chem 7: 09/11/17 07:29 09/11/17 07:29 Labs: Abnormal Lab Results - Last 24 Hours (Table) 09/11/17 09/11/17 09/11/17 Range/Units 07:29 07:29 07:29 RBC 2.88 L (3.80-5.40) m/uL Hgb 8.2 L (11.4-16.0) gm/dL Hct 26.7 L (34.0-46.0) % MCHC 30.7 L (31.0-37.0) g/dL RDW 19.5 H (11.5-15.5) % Plt Count 94 L (150-450) k/uL Metamyelocytes # (Man) 0.13 H (0) k/uL Myelocytes # (Manual) 0.06 H (0) k/uL Promyelocytes # (Man) 0.06 H (0) k/uL Blast Cells # (Man) 0.06 H (0) k/uL Nucleated RBCs 5 H (0-0) /100 WBC Pathologist Review See comment A Retic Count 3.1 H (0.5-2.0) % Iron 39 L (50-170) ug/dL Ferritin 2488.1 H (10.0-291.0) ng/mL CA 15-3 Antigen (0.0-32.3) U/mL CA 27-29 (0.0-38.5) U/mL RBC Folate 1,515 H (280 - 791) ng/mL 09/11/17 09/11/17 Range/Units 07:29 07:29 RBC (3.80-5.40) m/uL Hgb (11.4-16.0) gm/dL Hct (34.0-46.0) % MCHC (31.0-37.0) g/dL RDW (11.5-15.5) % Plt Count (150-450) k/uL Metamyelocytes # (Man) (0) k/uL Myelocytes # (Manual) (0) k/uL Promyelocytes # (Man) (0) k/uL Blast Cells # (Man) (0) k/uL Nucleated RBCs (0-0) /100 WBC Pathologist Review Retic Count (0.5-2.0) % Iron (50-170) ug/dL Ferritin (10.0-291.0) ng/mL CA 15-3 Antigen >4000.0 H (0.0-32.3) U/mL CA 27-29 7347.4 H (0.0-38.5) U/mL RBC Folate (280 - 791) ng/mL Assessment and Plan (1) Liver masses Narrative/Plan: 52-year-old female with a history of breast carcinoma presents with right-sided flank abdominal pain with elevated transaminases pancreatic enzymes with radiographic imaging reporting multiple hepatic masses, diffuse osseous sclerotic and lytic lesions suspicious for metastatic disease, primary unknown. Current Visit: Yes Status: Acute Code(s): R16.0 - HEPATOMEGALY, NOT ELSEWHERE CLASSIFIED SNOMED Code(s): 399384854 (2) Pancreatitis Narrative/Plan: Etiology unclear no history of ETOH abuse no mentioning of cholelithiasis on radiographic imaging. Current Visit: Yes Status: Acute Code(s): K85.90 - ACUTE PANCREATITIS WITHOUT NECROSIS OR INFECTION, UNSP SNOMED Code(s): 67135756 (3) History of breast cancer Current Visit: Yes Status: Chronic Priority: High Code(s): Z85.3 - PERSONAL HISTORY OF MALIGNANT NEOPLASM OF BREAST SNOMED Code(s): 738785997 (4) Thrombocytopenia Current Visit: Yes Status: Acute Code(s): D69.6 - THROMBOCYTOPENIA, UNSPECIFIED SNOMED Code(s): 562934630 Plan: 1. Advance diet. Discharge per medicine and oncology. 2. Supportive measures. If morning pancreatic enzymes are improving no further workup. Assessment and plan a care discussed with Dr. Haines
[2017-09-12 08:47] LABS: Anisocytosis Slight; HCT 26.7 % (34.0-46.0); HGB 7.8 gm/dL (11.4-16.0); Hypochromasia Marked; MCH 27.8 pg (25.0-35.0); MCHC 29.3 g/dL (31.0-37.0); MCV 94.9 fL (80.0-100.0); Macrocytosis Slight; RBC 2.82 m/uL (3.80-5.40); RDW 19.8 % (11.5-15.5)
[2017-09-12 08:55] LABS: ALT 42 U/L (9-52); AST 62 U/L (14-36); Albumin 2.7 g/dL (3.5-5.0); Alkaline Phosphatase 295 U/L (38-126); Amylase 101 U/L (30-110); Anion Gap 9 mmol/L; Blood Urea Nitrogen 6 mg/dL (7-17); Calcium 9.3 mg/dL (8.4-10.2); Carbon Dioxide 26 mmol/L (22-30); Chloride 104 mmol/L (98-107); Glucose 75 mg/dL (74-99); Lipase 936 U/L (23-300); Mean Platelet Volume 8.5; Sodium 139 mmol/L (137-145); Total Bilirubin 0.7 mg/dL (0.2-1.3); Total Protein 5.5 g/dL (6.3-8.2)
[2017-09-12 11:19] LABS: Band Neutrophils % 9 %; Metamyelocytes % 3 %; Myelocytes # (M) 0.06 k/uL (0); Myelocytes % 1 %; Neutrophils % (M) 47 %; Nucleated Red Blood Cells 9 /100 WBC (0-0); Total Cells Counted 200
[2017-09-12 11:20] LABS: Eosinophils # (M) 0.11 k/uL (0-0.7); Lymphocytes # (M) 1.87 k/uL (1.0-4.8); Metamyelocytes # (M) 0.17 k/uL (0); Monocytes # (M) 0.28 k/uL (0-1.0); Polychromasia Present; WBC 5.5 k/uL (3.8-10.6)
[2017-09-12] MEDS: PANTOPRAZOLE 40 MG/10 ML VIAL IVP SCH (11:20)
[2017-09-12 11:21] LABS: Platelet Count 85 k/uL (150-450)
--- NOTE | 2017-09-12 21:27 | DS ---
DISCHARGE SUMMARY FINAL DIAGNOSES: 1. Right-sided abdominal pain with multiple hepatic METS status post ultrasound-guided liver biopsy. 2. Diffuse skeletal hepatic metastasis. 3. History of breast cancer status post mastectomy. 4. Elevated amylase and lipase, possible acute pancreatitis present on admission. 5. Increased AST, ALT, alkaline phosphatase possibly secondary to metastasis. 6. History of nicotine dependence. 7. Anemia, normocytic anemia chronic disease. 8. FULL CODE. DISCHARGE DISPOSITION: The patient is being discharged in stable condition with guarded prognosis. HISTORY OF PRESENT ILLNESS: This 52-year-old woman with a past medical history of multiple medical problems, was admitted with diffuse hepatic METS and liver biopsy done and Dr. Welch is awaiting the biopsy report. Patient also had multiple other abnormalities as mentioned earlier. Overall patient made significant improvement. The patient is being discharged in stable condition with guarded prognosis. Extremely guarded prognosis. Discussed with family who understand and agrees. PHYSICAL EXAMINATION: On exam, vital signs stable. Cardiac; S1, S2. Abdomen soft. Nervous system: No focal deficits. DISCHARGE ADVICE AND MEDICATIONS: 1. Follow up with Dr. Her in 2-3 days. 2. Follow up with Dr. Welch as advised. 3. Medications are Xanax 0.5 t.i.d. p.r.n. 4. [place] 5 mg 1 p.o. q.4h p.r.n. MMSHELBYL / IJN: [id number] /
== END 2017-09-12 12:25 | disposition home or self-care (01) | DRG 435 ==
LOC: EC 18:54 → 5MS5E 22:11
PROVIDERS: ADMIT Hospitalist; ATTEND Hospitalist
PROC: 0FB03ZX Excision of Liver, Percutaneous Approach, Diagnostic (ICD-10-PCS; principal; 2017-09-10)
DX: C78.7 Secondary malignant neoplasm of liver and intrahepatic bile duct (principal); K85.90 Acute pancreatitis without necrosis or infection, unspecified; C79.51 Secondary malignant neoplasm of bone; D69.6 Thrombocytopenia, unspecified; D63.8 Anemia in other chronic diseases classified elsewhere; F17.200 Nicotine dependence, unspecified, uncomplicated; Z17.0 Estrogen receptor positive status [ER+]; Z79.810 Long term (current) use of selective estrogen receptor modulators (SERMs); Z82.0 Family history of epilepsy and other diseases of the nervous system; Z82.49 Family history of ischemic heart disease and other diseases of the circulatory system; Z83.3 Family history of diabetes mellitus; Z85.3 Personal history of malignant neoplasm of breast; Z90.12 Acquired absence of left breast and nipple; Z92.3 Personal history of irradiation
CPT/HCPCS: 36415; 47000; 71260; 74177; 76705; 76942; 78306; 80053; 80074; 80320; 81001; 82105; 82150; 82378; 82607; 82728; 82747; 83520; 83540; 83550; 83690; 85025; 85045; 85610; 85730; 86300; 86301; 88307; 88313; 88341; 88342; 96361; 96374; 99285

== ENCOUNTER → 2017-09-22 | Outpatient (CLI) | payer BC ==
--- NOTE | 2017-09-22 17:22 | US ---
EXAMINATION TYPE: US venous doppler duplex LE RT DATE OF EXAM: 09/22/2017 4:52 PM COMPARISON: NONE CLINICAL HISTORY: RT Lower Swelling R22.41. Right leg swelling. No hx of DVT. No blood thinners. P atient states whole body hurts. SIDE PERFORMED: Right TECHNIQUE: The lower extremity deep venous system is examined utilizing real time linear array sonog sheyla with graded compression, doppler sonography and color-flow sonography. VESSELS IMAGED: External Iliac Vein (EIV) Common Femoral Vein Deep Femoral Vein Greater Saphenous Vein * Femoral Vein Popliteal Vein Small Saphenous Vein * Proximal Calf Veins (* superficial vessels) Right Leg: Negative for DVT IMPRESSION: Grayscale, color doppler, spectral doppler imaging performed of the deep veins of the lo wer extremities. There is normal flow, compressibility, vascular waveforms. No evident deep venous thrombosis at or above the right knee
== END | disposition home or self-care (01) ==
LOC: RADUSMAIN 16:24
PROVIDERS: ATTEND Internal Medicine Hematology & Oncology
DX: R22.41 Localized swelling, mass and lump, right lower limb (principal)

== ENCOUNTER 2017-09-26 16:06 | Inpatient (IN) | payer BC ==
[2017-09-26 16:19] LABS: Glucose,Whole Blood >600 mg/dL (75-99)
[2017-09-26] MEDS ORDERED: MORPHINE SULFATE 4 MG/ML SYRINGE IVP STA ×3 (16:34→17:59)
[2017-09-26] MEDS: SODIUM CHLORIDE 0.9% 500 ML IV SCH ×2 (16:58→16:59)
[2017-09-26] MEDS ORDERED: INSULIN REGULAR BOLUS (FROM DRIP BAG) IV ONE (17:14)
[2017-09-26 17:15] LABS: Appearance,Urine Clear (Clear); Bilirubin,Urine Negative (Negative); Blood,Urine Negative (Negative); Color,Urine Light Yellow; Glucose,Urine (UA) 4+ (Negative); Ketones,Urine Trace (Negative); Leukocyte Esterase,Urine Negative (Negative); Nitrite,Urine Negative (Negative); PH, Urine 5.5 (5.0-8.0); Protein,Urine Negative (Negative); Specific Gravity,Urine 1.014 (1.001-1.035); Urobilinogen,Urine <2.0 mg/dL (<2.0)
[2017-09-26 17:15] LABS: INR 1.3 (<1.2); Partial Thromboplastin Time 24.1 sec (22.0-30.0); Prothrombin Time 11.9 sec (9.0-12.0)
[2017-09-26 17:16] LABS: Anisocytosis Slight; HGB 8.4 gm/dL (11.4-16.0); Hypochromasia Moderate; MCH 28.5 pg (25.0-35.0); MCV 91.8 fL (80.0-100.0); Mean Platelet Volume 8.2; Poikilocytosis Slight; RBC 2.94 m/uL (3.80-5.40); RDW 19.4 % (11.5-15.5)
[2017-09-26 17:25] LABS: ALT 101 U/L (9-52); AST 296 U/L (14-36); Albumin 2.5 g/dL (3.5-5.0); Alkaline Phosphatase 659 U/L (38-126); Anion Gap 13 mmol/L; Blood Urea Nitrogen 51 mg/dL (7-17); Calcium 8.9 mg/dL (8.4-10.2); Carbon Dioxide 24 mmol/L (22-30); Chloride 92 mmol/L (98-107); Potassium 5.4 mmol/L (3.5-5.1); Sodium 129 mmol/L (137-145); Total Bilirubin 1.7 mg/dL (0.2-1.3); Total Protein 5.5 g/dL (6.3-8.2)
[2017-09-26 17:27] LABS: Creatine Kinase 661 U/L (30-135); Glucose 610 mg/dL (74-99)
--- NOTE | 2017-09-26 17:34 | XR ---
EXAMINATION TYPE: XR chest 2V DATE OF EXAM: 09/26/2017 COMPARISON: 09/08/2011 HISTORY: Pain and fever TECHNIQUE: Frontal and lateral views of the chest are obtained. FINDINGS: Heart and mediastinum are normal. Lungs appear clear of infiltrate. There are multiple campbell stic changes in the ribs and bilateral shoulders. There are chest leads. There is no pleural effusion . There is some sclerotic change in the thoracic vertebra. IMPRESSION: Normal heart and lungs. Multiple blastic changes in the bony thorax consistent with meta static disease. This is a change compared to old exam.
[2017-09-26 17:40] LABS: Creatine Kinase MB 0.3 ng/mL (0.0-2.4); Troponin I <0.012 ng/mL (0.000-0.034)
[2017-09-26 17:43] LABS: Band Neutrophils % 12 %; Metamyelocytes % 1 %; Neutrophils % (M) 40 %; Nucleated Red Blood Cells 38 /100 WBC (0-0); Total Cells Counted 200
[2017-09-26] MEDS ORDERED: RX INFO: IV CONTRAST WAS GIVEN 1 EACH MISC MISCELLANE PRN (17:43)
--- NOTE | 2017-09-26 17:43 | XR ---
EXAMINATION TYPE: XR KUB DATE OF EXAM: 09/26/2017 COMPARISON: 12/05/2009 HISTORY: Abdominal pain TECHNIQUE: 2 views FINDINGS: There is no sign of intestinal obstruction or pneumoperitoneum. Liver appears enlarged. Lucy er extends over the right iliac crest. There is no evidence of a mass. There is diffuse osteoblastic change in the pelvis and lumbar spine. There are no pathologic calcific ations over the kidneys. IMPRESSION: There is probably hepatomegaly that is new compared to old exam. Diffuse osteoblastic nu nges consistent with metastatic disease.
[2017-09-26 17:44] LABS: Metamyelocytes # (M) 0.12 k/uL (0); Monocytes # (M) 0.12 k/uL (0-1.0); WBC 11.9 k/uL (3.8-10.6)
[2017-09-26 17:45] LABS: Anisocytosis (M) Present; Basophilic Stippling Present; Polychromasia Present
[2017-09-26] MEDS ORDERED: SODIUM CHLORIDE 0.9% 1,000 ML IV SCH (17:45)
--- NOTE | 2017-09-26 17:45 | ED ---
Recheck HPI - General Chief Complaint: Recheck/Abnormal Lab/Rx Stated Complaint: Elevated Glucose Time Seen by Provider: 09/26/17 16:17 Source: patient, RN notes reviewed, old records reviewed Mode of arrival: wheelchair Limitations: no limitations - History of Present Illness Initial Comments: This patient is a 52-year-old female with a history of breast cancer with metastases to the liver and spine presents after an appointment with her oncologist today. They did lab work and told her she had an elevated blood sugar. Patient has been very weak and complaining of significant abdominal pain. She reports that she has not been remaining hydrated or drinking fluids. She has not been eating much as well, only been able to take Ensure food intake. Patient is not currently undergoing chemotherapy. She denies any abnormal bowel habits or urination. Patient reports that she feels like she is short of breath when coming to emergency Department complains of some minor chest pain. Patient arrived very weak. - Related Data Home Medications Medication Instructions Recorded Confirmed Omeprazole [PriLOSEC] 20 mg PO DAILY 09/26/17 09/26/17 oxyCODONE-APAP 10-325MG [Percocet 1 tab PO Q4HR PRN 09/26/17 09/26/17 10-325 mg] Allergies Allergy/AdvReac Type Severity Reaction Status Date / Time No Known Allergies Allergy Verified 09/26/17 17:08 Review of Systems ROS Statement: Those systems with pertinent positive or pertinent negative responses have been documented in the HPI. ROS Other: All systems not noted in ROS Statement are negative. Past Medical History Past Medical History: Cancer Additional Past Medical History / Comment(s): Breast CA (in remission.) History of Any Multi-Drug Resistant Organisms: None Reported Past Surgical History: Breast Surgery Additional Past Surgical History / Comment(s): Mastectomy (2011) Past Anesthesia/Blood Transfusion Reactions: Unable to Obtain Additional Past Anesthesia/Blood Transfusion Reaction / Comment(s): no transfusion history Past Psychological History: No Psychological Hx Reported Smoking Status: Current every day smoker Past Alcohol Use History: Rare Past Drug Use History: None Reported - Past Family History Father Additional Family Medical History / Comment(s): heart attack, parkinson's Mother Family Medical History: Dementia, Diabetes Mellitus Sister(s) Family Medical History: Diabetes Mellitus General Exam - General Exam Comments Initial Comments: 52-year-old female. Patient appears very weak and icteric. Patient's pulse ox on room air is 85%, heart rate of 130. Limitations: no limitations General appearance: alert, lethargic Head exam: Present: atraumatic, normocephalic, normal inspection Eye exam: Present: PERRL, EOMI, scleral icterus. Absent: normal appearance, conjunctival injection, periorbital swelling ENT exam: Present: normal exam, mucous membranes moist Neck exam: Present: normal inspection. Absent: tenderness, meningismus, lymphadenopathy Respiratory exam: Present: normal lung sounds bilaterally. Absent: respiratory distress, wheezes, rales, rhonchi, stridor Cardiovascular Exam: Present: normal rhythm, tachycardia, normal heart sounds. Absent: regular rate, systolic murmur, diastolic murmur, rubs, gallop, clicks GI/Abdominal exam: Present: tenderness (Right upper quadrant epigastric tenderness.), normal bowel sounds. Absent: soft, distended, guarding, rebound, rigid Extremities exam: Present: normal inspection, full ROM, normal capillary refill. Absent: tenderness, pedal edema, joint swelling, calf tenderness Back exam: Present: normal inspection Neurological exam: Present: alert, oriented X3, CN II-XII intact Psychiatric exam: Present: normal affect, normal mood Skin exam: Present: warm, dry, intact, normal color. Absent: rash Course Vital Signs 09/26/17 09/26/17 09/26/17 16:10 17:06 18:27 Temperature 97.7 F Pulse Rate 121 H 121 H 123 H Respiratory 18 18 20 Rate Blood Pressure 141/66 147/70 128/60 O2 Sat by Pulse 90 L 97 98 Oximetry 09/26/17 09/26/17 19:20 20:35 Temperature Pulse Rate 118 H 105 H Respiratory 18 18 Rate Blood Pressure 120/57 130/58 O2 Sat by Pulse 96 98 Oximetry Medical Decision Making - Medical Decision Making This patient is very ill-appearing 52-year-old female with history of breast cancer with metastases to the liver and spine. She was very weak and cachectic able to get her from the wheelchair to the bed. Patient had a low oxygen saturation 85% on room air, was placed on 3 L of oxygen, and continued heart rate of 130. She was given pain medication and lab work obtained. With significant history of cancer of do a CT chest to rule out PE has patient has clinical symptoms of a PE. Patient EKG shows sinus tach with LVH. Patient was original sent here for her elevated blood sugars. Ice her blood sugar was reading over 600. Did place the patient on insulin bolus. Patient was given 2 L of fluid blood cultures and lactic obtained. Patient chest x-ray shows evidence of spinal abnormalities consistent with metastatic disease. This is new compared to previous x-rays. She has a chronically low platelet count of 17 ,[address] Patient's CT of her chest shows no evidence of PE or other acute abnormalities. Evidence of nodules and concern for slightly increased metastatic disease. CT abdomen and pelvis was performed and shows evidence of multiple hepatic lesions consistent with increasing metastatic lesions. Patient also has some evidence of enlarged adrenal glands concerning for metastases. No evidence of acute abdomen or pelvis. At this time with the elevated liver enzymes, and low platelets questioning patient has a deteriorating liver function due to metastases. At this time I will add an ammonia level. Dr. Macias has also seen the patient. Given her elevated heart rate, no significant sign of infection at this time and relatively unstable today believe the patient needs to be admitted for ICU. At 850 patient care will be transferred to Dr. Macias. Admitting orders were obtained. - Lab Data Result diagrams: 09/26/17 16:50 09/26/17 16:50 Lab Results 09/26/17 09/26/17 09/26/17 Range/Units 16:16 16:50 16:50 WBC (3.8-10.6) k/uL RBC (3.80-5.40) m/uL Hgb (11.4-16.0) gm/dL Hct (34.0-46.0) % MCV (80.0-100.0) fL MCH (25.0-35.0) pg MCHC (31.0-37.0) g/dL RDW (11.5-15.5) % Plt Count (150-450) k/uL Neutrophils % (Manual) % Band Neutrophils % % Lymphocytes % (Manual) % Monocytes % (Manual) % Metamyelocytes % % Neutrophils # (Manual) (1.3-7.7) k/uL Monocytes # (Manual) (0-1.0) k/uL Metamyelocytes # (Man) (0) k/uL Nucleated RBCs (0-0) /100 WBC Manual Slide Review Polychromasia Hypochromasia Poikilocytosis Basophilic Stippling Anisocytosis Anisocytosis (manual) PT (9.0-12.0) sec INR (<1.2) APTT (22.0-30.0) sec Sodium 129 L (137-145) mmol/L Potassium 5.4 H (3.5-5.1) mmol/L Chloride 92 L (98-107) mmol/L Carbon Dioxide 24 (22-30) mmol/L Anion Gap 13 mmol/L BUN 51 H (7-17) mg/dL Creatinine 0.58 (0.52-1.04) mg/dL Est GFR (CKD-EPI)AfAm >90 (>60 ml/min/1.73 sqM) Est GFR (CKD-EPI)NonAf >90 (>60 ml/min/1.73 sqM) Glucose 610 H* (74-99) mg/dL POC Glucose (mg/dL) >600 H (75-99) mg/dL POC Glu Senior Stack Engineer ID Tamara Hodge Plasma Lactic Acid Shawn (0.7-2.0) mmol/L Calcium 8.9 (8.4-10.2) mg/dL Total Bilirubin 1.7 H (0.2-1.3) mg/dL AST 296 H (14-36) U/L ALT 101 H (9-52) U/L Alkaline Phosphatase 659 H (38-126) U/L Total Creatine Kinase 661 H (30-135) U/L CK-MB (CK-2) 0.3 (0.0-2.4) ng/mL CK-MB (CK-2) Rel Index 0.0 Troponin I <0.012 (0.000-0.034) ng/mL Total Protein 5.5 L (6.3-8.2) g/dL Albumin 2.5 L (3.5-5.0) g/dL Urine Color Urine Appearance (Clear) Urine pH (5.0-8.0) Ur Specific Linwood (1.001-1.035) Urine Protein (Negative) Urine Glucose (UA) (Negative) Urine Ketones (Negative) Urine Blood (Negative) Urine Nitrite (Negative) Urine Bilirubin (Negative) Urine Urobilinogen (<2.0) mg/dL Ur Leukocyte Esterase (Negative) Stool Occult Blood (Negative) Acetone, Qual Negative (Negative) 09/26/17 09/26/17 09/26/17 Range/Units 16:50 16:50 16:50 WBC 11.9 H (3.8-10.6) k/uL RBC 2.94 L (3.80-5.40) m/uL Hgb 8.4 L (11.4-16.0) gm/dL Hct 27.0 L (34.0-46.0) % MCV 91.8 (80.0-100.0) fL MCH 28.5 (25.0-35.0) pg MCHC 31.0 (31.0-37.0) g/dL RDW 19.4 H (11.5-15.5) % Plt Count 17 L* D (150-450) k/uL Neutrophils % (Manual) 40 % Band Neutrophils % 12 % Lymphocytes % (Manual) 46 % Monocytes % (Manual) 1 % Metamyelocytes % 1 % Neutrophils # (Manual) 6.10 (1.3-7.7) k/uL Monocytes # (Manual) 0.12 (0-1.0) k/uL Metamyelocytes # (Man) 0.12 H (0) k/uL Nucleated RBCs 38 H (0-0) /100 WBC Manual Slide Review Performed Polychromasia Present Hypochromasia Moderate Poikilocytosis Slight Basophilic Stippling Present Anisocytosis Slight Anisocytosis (manual) Present PT 11.9 (9.0-12.0) sec INR 1.3 H (<1.2) APTT 24.1 (22.0-30.0) sec Sodium (137-145) mmol/L Potassium (3.5-5.1) mmol/L Chloride (98-107) mmol/L Carbon Dioxide (22-30) mmol/L Anion Gap mmol/L BUN (7-17) mg/dL Creatinine (0.52-1.04) mg/dL Est GFR (CKD-EPI)AfAm (>60 ml/min/1.73 sqM) Est GFR (CKD-EPI)NonAf (>60 ml/min/1.73 sqM) Glucose (74-99) mg/dL POC Glucose (mg/dL) (75-99) mg/dL POC Glu Senior Stack Engineer ID Plasma Lactic Acid Shawn 1.6 (0.7-2.0) mmol/L Calcium (8.4-10.2) mg/dL Total Bilirubin (0.2-1.3) mg/dL AST (14-36) U/L ALT (9-52) U/L Alkaline Phosphatase (38-126) U/L Total Creatine Kinase (30-135) U/L CK-MB (CK-2) (0.0-2.4) ng/mL CK-MB (CK-2) Rel Index Troponin I (0.000-0.034) ng/mL Total Protein (6.3-8.2) g/dL Albumin (3.5-5.0) g/dL Urine Color Urine Appearance (Clear) Urine pH (5.0-8.0) Ur Specific [place] (1.001-1.035) Urine Protein (Negative) Urine Glucose (UA) (Negative) Urine Ketones (Negative) Urine Blood (Negative) Urine Nitrite (Negative) Urine Bilirubin (Negative) Urine Urobilinogen (<2.0) mg/dL Ur Leukocyte Esterase (Negative) Stool Occult Blood (Negative) Acetone, Qual (Negative) 09/26/17 09/26/17 09/26/17 Range/Units 17:03 17:49 18:22 WBC (3.8-10.6) k/uL RBC (3.80-5.40) m/uL Hgb (11.4-16.0) gm/dL Hct (34.0-46.0) % MCV (80.0-100.0) fL MCH (25.0-35.0) pg MCHC (31.0-37.0) g/dL RDW (11.5-15.5) % Plt Count (150-450) k/uL Neutrophils % (Manual) % Band Neutrophils % % Lymphocytes % (Manual) % Monocytes % (Manual) % Metamyelocytes % % Neutrophils # (Manual) (1.3-7.7) k/uL Monocytes # (Manual) (0-1.0) k/uL Metamyelocytes # (Man) (0) k/uL Nucleated RBCs (0-0) /100 WBC Manual Slide Review Polychromasia Hypochromasia Poikilocytosis Basophilic Stippling Anisocytosis Anisocytosis (manual) PT (9.0-12.0) sec INR (<1.2) APTT (22.0-30.0) sec Sodium (137-145) mmol/L Potassium (3.5-5.1) mmol/L Chloride (98-107) mmol/L Carbon Dioxide (22-30) mmol/L Anion Gap mmol/L BUN (7-17) mg/dL Creatinine (0.52-1.04) mg/dL Est GFR (CKD-EPI)AfAm (>60 ml/min/1.73 sqM) Est GFR (CKD-EPI)NonAf (>60 ml/min/1.73 sqM) Glucose (74-99) mg/dL POC Glucose (mg/dL) 600 H (75-99) mg/dL POC Glu Senior Stack Engineer ID Lesa Moralez Plasma Lactic Acid Shawn (0.7-2.0) mmol/L Calcium (8.4-10.2) mg/dL Total Bilirubin (0.2-1.3) mg/dL AST (14-36) U/L ALT (9-52) U/L Alkaline Phosphatase (38-126) U/L Total Creatine Kinase (30-135) U/L CK-MB (CK-2) (0.0-2.4) ng/mL CK-MB (CK-2) Rel Index Troponin I (0.000-0.034) ng/mL Total Protein (6.3-8.2) g/dL Albumin (3.5-5.0) g/dL Urine Color Light Yellow Urine Appearance Clear (Clear) Urine pH 5.5 (5.0-8.0) Ur Specific Linwood 1.014 (1.001-1.035) Urine Protein Negative (Negative) Urine Glucose (UA) 4+ H (Negative) Urine Ketones Trace H (Negative) Urine Blood Negative (Negative) Urine Nitrite Negative (Negative) Urine Bilirubin Negative (Negative) Urine Urobilinogen <2.0 (<2.0) mg/dL Ur Leukocyte Esterase Negative (Negative) Stool Occult Blood Negative (Negative) Acetone, Qual (Negative) 09/26/17 09/26/17 Range/Units 18:49 19:58 WBC (3.8-10.6) k/uL RBC (3.80-5.40) m/uL Hgb (11.4-16.0) gm/dL Hct (34.0-46.0) % MCV (80.0-100.0) fL MCH (25.0-35.0) pg MCHC (31.0-37.0) g/dL RDW (11.5-15.5) % Plt Count (150-450) k/uL Neutrophils % (Manual) % Band Neutrophils % % Lymphocytes % (Manual) % Monocytes % (Manual) % Metamyelocytes % % Neutrophils # (Manual) (1.3-7.7) k/uL Monocytes # (Manual) (0-1.0) k/uL Metamyelocytes # (Man) (0) k/uL Nucleated RBCs (0-0) /100 WBC Manual Slide Review Polychromasia Hypochromasia Poikilocytosis Basophilic Stippling Anisocytosis Anisocytosis (manual) PT (9.0-12.0) sec INR (<1.2) APTT (22.0-30.0) sec Sodium (137-145) mmol/L Potassium (3.5-5.1) mmol/L Chloride (98-107) mmol/L Carbon Dioxide (22-30) mmol/L Anion Gap mmol/L BUN (7-17) mg/dL Creatinine (0.52-1.04) mg/dL Est GFR (CKD-EPI)AfAm (>60 ml/min/1.73 sqM) Est GFR (CKD-EPI)NonAf (>60 ml/min/1.73 sqM) Glucose (74-99) mg/dL POC Glucose (mg/dL) 493 H 471 H (75-99) mg/dL POC Glu Senior Stack Engineer Jossie Haywood Daniel Plasma Lactic Acid Shawn (0.7-2.0) mmol/L Calcium (8.4-10.2) mg/dL Total Bilirubin (0.2-1.3) mg/dL AST (14-36) U/L ALT (9-52) U/L Alkaline Phosphatase (38-126) U/L Total Creatine Kinase (30-135) U/L CK-MB (CK-2) (0.0-2.4) ng/mL CK-MB (CK-2) Rel Index Troponin I (0.000-0.034) ng/mL Total Protein (6.3-8.2) g/dL Albumin (3.5-5.0) g/dL Urine Color Urine Appearance (Clear) Urine pH (5.0-8.0) Ur Specific [place] (1.001-1.035) Urine Protein (Negative) Urine Glucose (UA) (Negative) Urine Ketones (Negative) Urine Blood (Negative) Urine Nitrite (Negative) Urine Bilirubin (Negative) Urine Urobilinogen (<2.0) mg/dL Ur Leukocyte Esterase (Negative) Stool Occult Blood (Negative) Acetone, Qual (Negative) 09/26/17 18:01 EKG performed at 1731 shows sinus tach minimal voltage criteria for LVH. Ventricular rate of 114 bpm. Verbal 120 mg seconds. QRS ration 96 most seconds. QT QTC 340/460 ms. - Radiology Data Radiology results: report reviewed Chest x-ray is normal heart and lungs. Multiple blastic changes in the bony thorax consistent with metastases disease. There is a change compared to old exam. Probably hepatomegaly that is new compared to old exam. Diffuse osteoblastic changes consistent with metastatic disease. Nodule of the left lung base is stable. Numerous lower lesions consistent with metastatic disease. Splenomegaly. Clearing of some mild infiltrate and pleural thickening at the right lung base compared to last exam. Mild adrenal enlargement that could relate to admit this direct disease. This appears stable. Diffuse osseous metastatic disease. No evidence of PE. Left bronchial adenopathy. No evidence of aortic aneurysm or dissection. Diffuse osseous metastatic disease. There is diffuse hepatic metastatic disease. Moderate splenomegaly. Left bronchial adenopathy appears increased compared to old exam. Left upper lobe nodule compares increased slightly compared to old exam. Disposition Clinical Impression: Anemia, Metastatic cancer, Abdominal pain, Hypoxia, Weakness, Hyperglycemia Disposition: ADMITTED IP TO THIS HOSP Condition: Stable Referrals: Brady Centeno MD [Primary Care Provider] - 1-2 days Time of Disposition: 20:24
[2017-09-26 17:57] LABS: Glucose,Whole Blood 600 mg/dL (75-99)
[2017-09-26] MEDS: INSULIN REGULAR 100 UNIT in SODIUM CHLORIDE 0.9% 100 ML IV SCH (17:58)
[2017-09-26 18:54] LABS: Glucose,Whole Blood 493 mg/dL (75-99)
--- NOTE | 2017-09-26 19:37 | CT ---
EXAMINATION TYPE: CT abdomen pelvis w con DATE OF EXAM: 09/26/2017 COMPARISON: 09/10/2017 HISTORY: elevated glucose, recent dx of liver ca CT DLP: 1476.8 mGycm Automated exposure control for dose reduction was used. TECHNIQUE: Helical acquisition of images was performed from the lung bases through the pelvis. CONTRAST: Performed without Oral Contrast and with IV Contrast, patient injected with 100 mL of Omnipaque 350. FINDINGS: There is a 1.2 cm irregular nodular density at the left lung base adjacent to the diaphragm. There ar e numerous variable sized hypodense lesions throughout the liver. Spleen is enlarged and measures 15. 5 cm in length. There is no evidence of pancreatic mass. There is some bulkiness of the left and right adrenal gland. Kidneys show satisfactory contrast opaci fication. There is no hydronephrosis. There is no retroperitoneal adenopathy. There is no ascites. Th ere is a catheter in the urinary bladder. There is no evidence of a pelvic mass. There is no ascites. I see no intestinal wall thickening. There are no dilated loops. There are few sigmoid diverticula. There is no evidence of diverticulitis. Appendix is not seen. There is no sign of appendicitis. There is extensive osteoblastic change throughout the visualized bony structures. IMPRESSION: NODULE AT THE LEFT LUNG BASE IS STABLE. NUMEROUS LIVER LESIONS CONSISTENT WITH METASTATIC DISEASE. SP LENOMEGALY. THERE IS CLEARING OF SOME MILD INFILTRATE AND PLEURAL THICKENING AT THE RIGHT LUNG BASE C OMPARED TO LAST EXAM. MILD ADRENAL ENLARGEMENT THAT COULD RELATE TO METASTATIC DISEASE. THIS APPEARS STABLE. DIFFUSE OSSEOUS METASTATIC DISEASE.
--- NOTE | 2017-09-26 19:42 | CT ---
EXAMINATION TYPE: CT chest angio for PE DATE OF EXAM: 09/26/2017 COMPARISON: NONE HISTORY: elevated glucose CT DLP: 219.4 mGycm Automated exposure control for dose reduction was used. CONTRAST: CT Chest for pulmonary embolism performed with with IV Contrast, patient injected with 100 mL of Omni paque 350. There are 3-D post processed images. FINDINGS: There is irregular 1.5 cm nodule in the anterior left upper lobe. There is coarsening of pulmonary in terstitial markings. There is pleural thickening and mild infiltrate in the lingula left upper lobe. There is an irregular 1.5 cm nodule at the left lung base adjacent to the diaphragm. There is no pleu ral effusion. Spleen is enlarged. There is no pericardial effusion. There are enlarged left bronchial lymph nodes that measure up to 2 cm. I see no filling defects in the pulmonary arteries. There is diffuse osteoblastic change in the bony thorax. IMPRESSION: No evidence of pulmonary embolism. Left bronchial adenopathy. No evidence of aortic aneurysm or disse ction. Diffuse osseous metastatic disease. The diffuse hepatic metastatic disease. Moderate splenomeg deepti. Left bronchial adenopathy appears increased compared to old exam. Left upper lobe nodule appears incr eased slightly compared to old exam.
[2017-09-26 20:02] LABS: Glucose,Whole Blood 471 mg/dL (75-99)
[2017-09-26] MEDS ORDERED: METOPROLOL TARTRATE 5 MG/5 ML VIAL IVP STA (20:20)
[2017-09-26] MEDS ORDERED: ONDANSETRON 4 MG/2 ML VIAL IVP PRN (20:44)
[2017-09-26] MEDS ORDERED: IBUPROFEN 400 MG TAB PO PRN (20:44)
[2017-09-26] MEDS ORDERED: NALOXONE 0.4 MG/ML 1 ML VIAL IV PRN (20:44)
[2017-09-26] MEDS ORDERED: MORPHINE SULFATE 4 MG/ML SYRINGE IV PRN (20:44)
[2017-09-26 21:03] LABS: Glucose,Whole Blood 396 mg/dL (75-99)
[2017-09-26 21:14] LABS: Amylase 40 U/L (30-110); Lipase 234 U/L (23-300)
[2017-09-26] MEDS: MORPHINE SULFATE 4 MG/ML SYRINGE IVP PRN (22:02)
[2017-09-26] MEDS: SODIUM CHLORIDE 0.9% 1,000 ML IV SCH (22:03)
[2017-09-26 22:08] LABS: Glucose,Whole Blood 313 mg/dL (75-99)
[2017-09-26 23:06] LABS: Platelet Count 17 k/uL (150-450)
[2017-09-27] LABS: Glucose,Whole Blood 165 mg/dL (75-99)
[2017-09-27] MEDS: MORPHINE SULFATE 4 MG/ML SYRINGE IVP PRN ×7 (00:53→18:05)
[2017-09-27 02:08] LABS: Glucose,Whole Blood 174 mg/dL (75-99)
[2017-09-27 04:02] LABS: Glucose,Whole Blood 169 mg/dL (75-99)
[2017-09-27 05:42] LABS: Glucose,Whole Blood 173 mg/dL (75-99)
[2017-09-27] MEDS: SODIUM CHLORIDE 0.9% 1,000 ML IV SCH ×3 (06:00→17:40)
[2017-09-27] MEDS: INSULIN REGULAR 100 UNIT in SODIUM CHLORIDE 0.9% 100 ML IV SCH ×2 (06:01→09:02)
[2017-09-27 07:18] LABS: Anisocytosis Slight; HCT 24.5 % (34.0-46.0); HGB 7.7 gm/dL (11.4-16.0); Hypochromasia Slight; MCH 28.6 pg (25.0-35.0); MCHC 31.5 g/dL (31.0-37.0); MCV 90.7 fL (80.0-100.0); Mean Platelet Volume 7.4; Poikilocytosis Slight; RDW 19.7 % (11.5-15.5); WBC 20.2 k/uL (3.8-10.6)
[2017-09-27 07:29] LABS: Platelet Count 15 k/uL (150-450)
[2017-09-27 07:32] LABS: ALT 95 U/L (9-52); AST 260 U/L (14-36); Albumin 2.3 g/dL (3.5-5.0); Alkaline Phosphatase 552 U/L (38-126); Anion Gap 6 mmol/L; Blood Urea Nitrogen 28 mg/dL (7-17); Calcium 8.7 mg/dL (8.4-10.2); Carbon Dioxide 29 mmol/L (22-30); Chloride 106 mmol/L (98-107); Glucose 150 mg/dL (74-99); Magnesium 2.1 mg/dL (1.6-2.3); Potassium 4.4 mmol/L (3.5-5.1); Sodium 141 mmol/L (137-145); Total Bilirubin 1.4 mg/dL (0.2-1.3); Total Protein 5.1 g/dL (6.3-8.2)
[2017-09-27 08:29] LABS: Glucose,Whole Blood 159 mg/dL (75-99)
[2017-09-27] MEDS ORDERED: PANTOPRAZOLE 40 MG/10 ML VIAL IV SCH (09:00)
[2017-09-27 10:34] LABS: Glucose,Whole Blood 143 mg/dL (75-99)
[2017-09-27 12:26] LABS: Glucose,Whole Blood 145 mg/dL (75-99)
[2017-09-27 12:54] VITALS: BMI 24.2
[2017-09-27 13:43] LABS: Anisocytosis Slight; HCT 25.4 % (34.0-46.0); HGB 7.7 gm/dL (11.4-16.0); Hypochromasia Moderate; MCH 27.8 pg (25.0-35.0); MCHC 30.4 g/dL (31.0-37.0); MCV 91.4 fL (80.0-100.0); Mean Platelet Volume 7.7; Poikilocytosis Slight; RBC 2.78 m/uL (3.80-5.40); RDW 19.8 % (11.5-15.5)
[2017-09-27 13:52] LABS: INR 1.3 (<1.2); Platelet Count 17 k/uL (150-450); Prothrombin Time 12.2 sec (9.0-12.0)
[2017-09-27 13:53] LABS: Glucose,Whole Blood 166 mg/dL (75-99)
[2017-09-27] MEDS ORDERED: NICOTINE 21MG/24HR PATCH TRANSDERM SCH (16:45)
--- NOTE | 2017-09-27 17:10 | HP ---
HISTORY AND PHYSICAL DATE OF ADMISSION: 09/26/2017 PRESENTING COMPLAINT: Increasing lethargy, pain. HISTORY OF PRESENTING COMPLAINT: This is a 52-year-old patient being followed by Dr. Mccray. Patient was diagnosed with stage III ER/ME plus, Her2-neuu negative left breast cancer in April 2011. She underwent left mastectomy and axillary node dissection, completed 6 cycles of Taxotere and Cytoxan in September of 2011 and completed adjuvant radiation therapy in November of 2011. Since then she had been on tamoxifen. Some time ago patient decided to discontinue the tamoxifen on her own. History is obtained today by the patient's sister, who is at the bedside, her , as they do not live together, and patient's son with his who is here from [place]. The patient had gone to see Dr. Mccray in the office, from where patient was admitted. The patient in the last few days has rapidly been going downhill, with poor oral intake, not able to get about much, increasing pain in different joints. The patient was here in the hospital over 2 weeks ago. The patient has metastatic disease in the liver and bony metastasis. The patient has been having rapid functional decline. According to her son, one of the options mentioned in the office was about hospice. Patient's electrolytes were all severely off when she was admitted. Sugars were running high and she was put on insulin drip. Review of systems could not be obtained, as patient was rather lethargic. PAST MEDICAL HISTORY: Metastatic breast cancer to the liver and bones. PAST SURGICAL HISTORY: 1. Appendectomy. 2. Left mastectomy with axillary node resection. SOCIAL HISTORY: Patient lives alone. from her . She worked in a factory until about 2 weeks ago. No alcohol. FAMILY HISTORY: Dementia, diabetes, heart attack, parkinson's. HOME MEDICATIONS: 1. Percocet 10 one tablet q.4 p.r.n. 2. Prilosec 20 mg p.o. daily. ALLERGIES: NONE. PHYSICAL EXAMINATION: VITAL SIGNS ON PRESENTATION: Temperature 97.7, pulse 121, respiration 18, blood pressure 148/66, pulse ox 98% on room air. GENERAL APPEARANCE: Average build. Lying in bed, somewhat lethargic. EYES: Pupils equal. Conjunctivae pale. HEENT: External appearance of nose and ears normal. Oral cavity dry mucous membrane. NECK: JVD unable to assess. Mass not palpable. RESPIRATORY: Effort slightly increased. LUNGS: Diminished breath sounds. CARDIOVASCULAR: First and second sounds normal. No edema. ABDOMEN: Soft. Minimal tenderness. No guarding or rigidity. Liver and spleen palpable. PSYCHIATRY: Patient lethargic. Does answer some questions but then dozes off. Patient is moaning. NEUROLOGICAL: Pupils equal. No facial asymmetry. Moving all 4 limbs. INVESTIGATIONS: White count 11.9, hemoglobin 8.4, platelets 17. Sodium 129, potassium 5.4, BUN 51, creatinine 0.58, glucose 610, AST 296, ALT 101, alkaline phosphatase 659. Serum acetone negative. Troponin negative. Repeat labs showed a white count of 20.2, potassium 4.4, BUN 28, creatinine 0.44, albumin 2.3. EKG sinus tachycardia. Chest x-ray showing multiple blastic changes in the bony thorax. CT scan of the abdomen, pelvis and chest show a nodule in the left lung base, numerous liver lesions, splenomegaly, some adrenal enlargement, diffuse osseous metastatic disease. Chest CTA negative for PE; moderate splenomegaly; some increase in left bronchial adenopathy. ASSESSMENT: 1. Breast cancer, metastatic, in the liver and bony metastasis with clinical worsening. 2. Acute metabolic encephalopathy from above. 3. Non-ketotic hyperglycemia. 4. Normocytic anemia due to breast cancer. 5. Severe thrombocytopenia. 6. Clinical dehydration. 7. Hypoalbuminemia, probably from mild protein-calorie intake from decreased oral intake. 8. Hyperkalemia. PLAN: Patient was put on IV fluids and insulin when she came in. Dr. Welch had ordered some DIC blood work. Electrolytes were being followed. Patient is getting morphine for pain control. Prognosis poor. ADVANCED CARE PLANNING: I had a meeting with the patient's sister, her , son and [id number], and they are all in agreement that the patient is okay to proceed with hospice. Prognosis is poor and patient did mention to them this morning that she has had enough of this. The patient already getting morphine for pain control. I did speak to Dr. Welch, who agrees with the same. Advanced care planning discussion was for about 25 minutes in addition to the H&P. Additionally, patient's CODE STATUS HAS BEEN CHANGED TO DNR and per patient's sister, Hospice is now being called in for an informational visit to start off with. MMODL / IJN: [id number] /
--- NOTE | 2017-09-27 19:45 | P.CONS ---
History of Present Illness - Reason for Consult Consult date: 09/27/17 - History of Present Illness Pt is a very pleasant 52 year old female patient who was diagnosed with stage IIIA,ER/OH+,HER2/MALENA negative, left breast cancer in April 2011. She had a left mastectomy and axillary nodes dissection, completed 6 cycles of taxotere and cytoxan in September 2011 and completed adjuvant radiation therapy in November 2011, been on tamoxifen since December 2011 and was last seen by Dr. Mccray in 2016. Pt presented to [facility] after complaining of severe abdominal and back pain, last month, and was found to have evidence of diffuse liver, as well as bone and possibly lung metastasis. Liver biopsy was consistent with metastatic carcinoma from breast primary. The patient was treated for pain control, and then discharged. She saw Dr. Dr. Mccray in the office on 09/26/17. She was noted to be very weak, with low oral intake and appear to be dehydrated. Blood sugars were high in the 600 range. She was therefore sent in to the emergency room and subsequently admitted. Review of Systems Constitutional: Reports anorexia, Reports poor appetite, Reports weakness, Reports weight loss Eyes: denies blurred vision, denies pain Ears: deny: decreased hearing, ear discharge, earache, tinnitus Ears, nose, mouth and throat: Denies headache, Denies sore throat Cardiovascular: Reports dyspnea on exertion Respiratory: Reports dyspnea Gastrointestinal: Reports abdominal pain Genitourinary: Denies dysuria, Denies hematuria Menstruation: Reports postmenopausal Musculoskeletal: Reports muscle weakness Integumentary: Denies pruritus, Denies rash Neurological: Reports change in mentation, Reports confusion, Reports weakness Psychiatric: Reports confusion Endocrine: Reports high blood sugars Hematologic/Lymphatic: Reports as per HPI Allergic/Immunologic: Reports as per HPI Past Medical History Past Medical History: Cancer Additional Past Medical History / Comment(s): Breast CA (in remission.) diagnosed 7 years ago with recent diagnosis of liver ca & mets to bone History of Any Multi-Drug Resistant Organisms: None Reported Past Surgical History: Appendectomy, Breast Surgery Additional Past Surgical History / Comment(s): LEFT Mastectomy (2011) Past Anesthesia/Blood Transfusion Reactions: Unable to Obtain Additional Past Anesthesia/Blood Transfusion Reaction / Comm: no transfusion history Past Psychological History: No Psychological Hx Reported Smoking Status: Current every day smoker Past Alcohol Use History: None Reported Past Drug Use History: None Reported - Past Family History Father Additional Family Medical History / Comment(s): heart attack, parkinson's Mother Family Medical History: Dementia, Diabetes Mellitus Sister(s) Family Medical History: Diabetes Mellitus Medications and Allergies Home Medications Medication Instructions Recorded Confirmed Type Omeprazole [PriLOSEC] 20 mg PO DAILY 09/26/17 09/26/17 History oxyCODONE-APAP 10-325MG [Percocet 1 tab PO Q4HR PRN 09/26/17 09/26/17 History 10-325 mg] Allergies Allergy/AdvReac Type Severity Reaction Status Date / Time No Known Allergies Allergy Verified 09/26/17 17:08 Physical Exam Vitals: Vital Signs Temp Pulse Pulse Resp BP BP Pulse Ox 09/27/17 03:36 97.8 F 123 H 16 133/67 91 L 09/27/17 00:00 97 F L 118 H 16 140/79 95 09/26/17 22:11 97.9 F 116 H 18 126/59 99 09/26/17 20:35 105 H 18 130/58 98 09/26/17 19:20 118 H 18 120/57 96 09/26/17 18:27 123 H 20 128/60 98 09/26/17 17:06 121 H 18 147/70 97 09/26/17 16:10 97.7 F 121 H 18 141/66 90 L Intake and Output 09/26/17 09/27/17 09/27/17 22:59 06:59 14:59 Intake Total 35.733 832.533 Output Total 1100 600 Balance -1064.267 232.533 Intake: IV 800 Sodium Chloride 0.9% 1, 800 000 ml @ 100 mls/hr IV . Q10H [facility] Rx#:[id number] Intake, IV Titration 35.733 32.533 Amount Insulin Regular 100 unit 35.733 32.533 In Sodium Chloride 0.9% 100 ml @ 0.1 UNITS/KG/HR 7 mls/hr IV .[id number] [facility] Rx#:[id number] Output: Urine 1100 600 Other: Voiding Method Indwelling Catheter Weight 69.4 kg 62 kg - Constitutional very weak, mildly confused, lethargic General appearance: mild distress - EENT Eyes: EOMI, PERRLA - Neck Neck: no lymphadenopathy Thyroid: bilateral: normal size - Respiratory Respiratory: bilateral: diminished - Cardiovascular Rhythm: regular Heart sounds: normal: S1, S2 - Gastrointestinal General gastrointestinal: distended, hepatomegaly Localized gastrointestinal: tender: RUQ - Integumentary Integumentary: normal - Neurologic lethargy, slow affect, diminished recall, confusion Neurologic: CNII-XII intact - Musculoskeletal Musculoskeletal: generalized weakness - Psychiatric Mental status as noted above Results CBC & Chem 7: 09/27/17 13:21 09/27/17 05:13 Labs: Abnormal Lab Results - Last 24 Hours (Table) 09/26/17 09/26/17 09/26/17 Range/Units 16:16 16:50 16:50 WBC (3.8-10.6) k/uL RBC (3.80-5.40) m/uL Hgb (11.4-16.0) gm/dL Hct (34.0-46.0) % RDW (11.5-15.5) % Plt Count (150-450) k/uL Metamyelocytes # (Man) (0) k/uL Nucleated RBCs (0-0) /100 WBC INR (<1.2) Sodium 129 L (137-145) mmol/L Potassium 5.4 H (3.5-5.1) mmol/L Chloride 92 L (98-107) mmol/L BUN 51 H (7-17) mg/dL Creatinine (0.52-1.04) mg/dL Glucose 610 H* (74-99) mg/dL POC Glucose (mg/dL) >600 H (75-99) mg/dL Total Bilirubin 1.7 H (0.2-1.3) mg/dL AST 296 H (14-36) U/L ALT 101 H (9-52) U/L Alkaline Phosphatase 659 H (38-126) U/L Total Creatine Kinase 661 H (30-135) U/L Total Protein 5.5 L (6.3-8.2) g/dL Albumin 2.5 L (3.5-5.0) g/dL Urine Glucose (UA) (Negative) Urine Ketones (Negative) 09/26/17 09/26/17 09/26/17 Range/Units 16:50 16:50 17:03 WBC 11.9 H (3.8-10.6) k/uL RBC 2.94 L (3.80-5.40) m/uL Hgb 8.4 L (11.4-16.0) gm/dL Hct 27.0 L (34.0-46.0) % RDW 19.4 H (11.5-15.5) % Plt Count 17 L* D (150-450) k/uL Metamyelocytes # (Man) 0.12 H (0) k/uL Nucleated RBCs 38 H (0-0) /100 WBC INR 1.3 H (<1.2) Sodium (137-145) mmol/L Potassium (3.5-5.1) mmol/L Chloride (98-107) mmol/L BUN (7-17) mg/dL Creatinine (0.52-1.04) mg/dL Glucose (74-99) mg/dL POC Glucose (mg/dL) (75-99) mg/dL Total Bilirubin (0.2-1.3) mg/dL AST (14-36) U/L ALT (9-52) U/L Alkaline Phosphatase (38-126) U/L Total Creatine Kinase (30-135) U/L Total Protein (6.3-8.2) g/dL Albumin (3.5-5.0) g/dL Urine Glucose (UA) 4+ H (Negative) Urine Ketones Trace H (Negative) 09/26/17 09/26/17 09/26/17 Range/Units 17:49 18:49 19:58 WBC (3.8-10.6) k/uL RBC (3.80-5.40) m/uL Hgb (11.4-16.0) gm/dL Hct (34.0-46.0) % RDW (11.5-15.5) % Plt Count (150-450) k/uL Metamyelocytes # (Man) (0) k/uL Nucleated RBCs (0-0) /100 WBC INR (<1.2) Sodium (137-145) mmol/L Potassium (3.5-5.1) mmol/L Chloride (98-107) mmol/L BUN (7-17) mg/dL Creatinine (0.52-1.04) mg/dL Glucose (74-99) mg/dL POC Glucose (mg/dL) 600 H 493 H 471 H (75-99) mg/dL Total Bilirubin (0.2-1.3) mg/dL AST (14-36) U/L ALT (9-52) U/L Alkaline Phosphatase (38-126) U/L Total Creatine Kinase (30-135) U/L Total Protein (6.3-8.2) g/dL Albumin (3.5-5.0) g/dL Urine Glucose (UA) (Negative) Urine Ketones (Negative) 09/26/17 09/26/17 09/26/17 Range/Units 21:02 22:05 23:58 WBC (3.8-10.6) k/uL RBC (3.80-5.40) m/uL Hgb (11.4-16.0) gm/dL Hct (34.0-46.0) % RDW (11.5-15.5) % Plt Count (150-450) k/uL Metamyelocytes # (Man) (0) k/uL Nucleated RBCs (0-0) /100 WBC INR (<1.2) Sodium (137-145) mmol/L Potassium (3.5-5.1) mmol/L Chloride (98-107) mmol/L BUN (7-17) mg/dL Creatinine (0.52-1.04) mg/dL Glucose (74-99) mg/dL POC Glucose (mg/dL) 396 H 313 H 165 H (75-99) mg/dL Total Bilirubin (0.2-1.3) mg/dL AST (14-36) U/L ALT (9-52) U/L Alkaline Phosphatase (38-126) U/L Total Creatine Kinase (30-135) U/L Total Protein (6.3-8.2) g/dL Albumin (3.5-5.0) g/dL Urine Glucose (UA) (Negative) Urine Ketones (Negative) 09/27/17 09/27/17 09/27/17 Range/Units 01:56 03:59 05:13 WBC 20.2 H (3.8-10.6) k/uL RBC 2.70 L (3.80-5.40) m/uL Hgb 7.7 L (11.4-16.0) gm/dL Hct 24.5 L (34.0-46.0) % RDW 19.7 H (11.5-15.5) % Plt Count 15 L* (150-450) k/uL Metamyelocytes # (Man) (0) k/uL Nucleated RBCs (0-0) /100 WBC INR (<1.2) Sodium (137-145) mmol/L Potassium (3.5-5.1) mmol/L Chloride (98-107) mmol/L BUN (7-17) mg/dL Creatinine (0.52-1.04) mg/dL Glucose (74-99) mg/dL POC Glucose (mg/dL) 174 H 169 H (75-99) mg/dL Total Bilirubin (0.2-1.3) mg/dL AST (14-36) U/L ALT (9-52) U/L Alkaline Phosphatase (38-126) U/L Total Creatine Kinase (30-135) U/L Total Protein (6.3-8.2) g/dL Albumin (3.5-5.0) g/dL Urine Glucose (UA) (Negative) Urine Ketones (Negative) 09/27/17 09/27/17 Range/Units 05:13 05:34 WBC (3.8-10.6) k/uL RBC (3.80-5.40) m/uL Hgb (11.4-16.0) gm/dL Hct (34.0-46.0) % RDW (11.5-15.5) % Plt Count (150-450) k/uL Metamyelocytes # (Man) (0) k/uL Nucleated RBCs (0-0) /100 WBC INR (<1.2) Sodium (137-145) mmol/L Potassium (3.5-5.1) mmol/L Chloride (98-107) mmol/L BUN 28 H (7-17) mg/dL Creatinine 0.44 L (0.52-1.04) mg/dL Glucose 150 H (74-99) mg/dL POC Glucose (mg/dL) 173 H (75-99) mg/dL Total Bilirubin 1.4 H (0.2-1.3) mg/dL AST 260 H (14-36) U/L ALT 95 H (9-52) U/L Alkaline Phosphatase 552 H (38-126) U/L Total Creatine Kinase (30-135) U/L Total Protein 5.1 L (6.3-8.2) g/dL Albumin 2.3 L (3.5-5.0) g/dL Urine Glucose (UA) (Negative) Urine Ketones (Negative) Microbiology - Last 24 Hours (Table) 09/26/17 17:03 Urine Culture - Preliminary Urine,Clean Catch Chest x-ray: report reviewed CT scan - abdomen: report reviewed CT scan - chest: report reviewed CT scan - pelvis: report reviewed Assessment and Plan (1) Metastatic cancer Narrative/Plan: The pt has a recent diagnosis of metastatic recurrence of her breast cancer. She has had a very aggressive presentation, with fairly rapid progression. Even since her diagnosis, the liver enzymes have increased further, and PS has declined. Her cancer appears to be ER positive, though formal staining is awaited. Usually, a good response would be expected with second line hormonal therapy, with average survival measured in years. Thus aggressive treatment is normally recommended. However, given her heavy visceral involvement, and rapid progression in the liver, the prognosis is much more guarded. This was d/w the son and daughter in law. Current Visit: Yes Status: Acute Code(s): C79.9 - SECONDARY MALIGNANT NEOPLASM OF UNSPECIFIED SITE SNOMED Code(s): 639441563 (2) Thrombocytopenia Narrative/Plan: Plt and hgb have both declined, the plt more so. DIC labs will be ordered. If negative, this may be due to rapid progression of liver disease, and would be an ominous sign. Transfuse to keep plt > 10, or higher if any evidence of bleeding. Current Visit: No Status: Acute Code(s): D69.6 - THROMBOCYTOPENIA, UNSPECIFIED SNOMED Code(s): 130428131 (3) Hyperglycemia Narrative/Plan: Improved with aggressive hydration and insulin management. Defer to IM for continued care. This is most likely due to progressive liver dysfunction Current Visit: Yes Status: Acute Code(s): R73.9 - HYPERGLYCEMIA, UNSPECIFIED SNOMED Code(s): 45760297 (4) Altered mental state Narrative/Plan: This could be due to progressive liver disease, and /or effect of pain medications. If the latter, management would be quite challenging, given her liver dysfunction, and still non optimal pain control. Current Visit: Yes Status: Acute Code(s): R41.82 - ALTERED MENTAL STATUS, UNSPECIFIED SNOMED Code(s): 512450459 Plan: Add: Case was d/w admitting service in detail. They have informed me that the family desires comfort care. Per Nsg, the pt herself had stated that she did not want any more aggressive treatment or testing. Given her current condition, especially comparitively rapid liver disease, this is not unreasonable. Hospice will be consulted.
[2017-09-27] MEDS: MORPHINE SULFATE (100 MG/2 ML) 100 MG in SODIUM CHLORIDE 0.9% 100 ML IV SCH (20:33)
[2017-09-28 07:55] VITALS: RESP 20
[2017-09-28] MEDS: SODIUM CHLORIDE 0.9% 1,000 ML IV SCH ×2 (15:13→22:50)
[2017-09-28] MEDS: MORPHINE SULFATE (100 MG/2 ML) 100 MG in SODIUM CHLORIDE 0.9% 100 ML IV SCH (17:23)
--- NOTE | 2017-09-28 18:50 | PN ---
PROGRESS NOTE DATE OF SERVICE: 09/28/17. PRESENTING COMPLAINT: Pain. INTERVAL HISTORY: This is a patient with metastatic breast cancer presents with severe pain. The patient has been put on a morphine drip. Lying in bed comfortable. The patient's son and [id number], sister and are present. REVIEW OF SYSTEMS: Cannot be done as patient is not able to communicate. CURRENT MEDICATIONS: Include IV morphine drip, Duragesic patch. PHYSICAL EXAMINATION: Temperature 98.6, pulse 133, respirations 20, blood pressure 130/87, pulse ox 93% 3 L. Lying in bed, comfortable. LUNGS: Decreased breath sounds. Tachycardia present. ASSESSMENT: 1. Metastatic breast cancer. 2. Pain control. 3. Comfort care. PLAN: Continue patient on IV morphine. Care was discussed at length with the family members at the bedside. Hospice and social and political studies professor will talk about if the patient may leave the hospital for hospice. At this point cannot tell how long the patient may be in this condition. MMODL / IJN: [id number] /
[2017-09-29] MEDS: SODIUM CHLORIDE 0.9% 1,000 ML IV SCH (09:01)
[2017-09-29 09:03] VITALS: BP 82/51; PULSE 137; TEMP 102.9
--- NOTE | 2017-09-29 17:39 | DS ---
DISCHARGE SUMMARY DATE OF ADMISSION: September 26, 2017. DATE OF DISCHARGE: September 29, 2017. FINAL DIAGNOSES: 1. Metastatic breast cancer. 2. Comfort care. CONSULTATION: Dr. Neftali Welch from Oncology. HOSPITAL COURSE: The patient of Dr. Mccray with metastatic breast cancer presented with uncontrolled pain going down hill with excessive metastasis. The pain was relentless and patient is put on IV morphine. Several family members are present and patient is being discharged to inpatient hospice. PHYSICAL EXAMINATION: On examination, the patient has been comfortable. On exam, patient is comfortable on IV morphine. Lungs decreased breath sounds. DISPOSITION: Inpatient hospice for some symptom control. Copy to Dr. Brady Centeno. MMODL / IJN: [id number] /
== END 2017-09-29 09:56 | disposition hospice, inpatient (51) | DRG 435 ==
LOC: EC 16:06 → 6SEL 21:27 → 5ONC 09-27 17:51
PROVIDERS: ADMIT Hospitalist; ATTEND Hospitalist
DX: C78.7 Secondary malignant neoplasm of liver and intrahepatic bile duct (principal); G93.41 Metabolic encephalopathy; C79.51 Secondary malignant neoplasm of bone; R64 Cachexia; D69.6 Thrombocytopenia, unspecified; E87.5 Hyperkalemia; E88.09 Other disorders of plasma-protein metabolism, not elsewhere classified; E86.0 Dehydration; D63.0 Anemia in neoplastic disease; F17.200 Nicotine dependence, unspecified, uncomplicated; R09.02 Hypoxemia; R73.9 Hyperglycemia, unspecified; R91.1 Solitary pulmonary nodule; R16.1 Splenomegaly, not elsewhere classified; Z51.5 Encounter for palliative care; Z66 Do not resuscitate; Z79.899 Other long term (current) drug therapy; Z85.3 Personal history of malignant neoplasm of breast; Z90.12 Acquired absence of left breast and nipple; Z92.3 Personal history of irradiation; Z82.49 Family history of ischemic heart disease and other diseases of the circulatory system
CPT/HCPCS: 36415; 51702; 71046; 71275; 74018; 74177; 80053; 81003; 82009; 82140; 82150; 82272; 82550; 82553; 83605; 83690; 83735; 84484; 85025; 85027; 85384; 85385; 85610; 85730; 86850; 86900; 86901; 87040; 87086; 93005; 96361; 96374; 96375; 96376; 99285

== ENCOUNTER 2017-09-29 09:58 | Inpatient (IN) | payer MEDICAID ==
[2017-09-29] MEDS ORDERED: LORazepam 2 MG/ML INJ IV PRN (10:30)
[2017-09-29] MEDS ORDERED: MORPHINE SULFATE (100 MG/2 ML) 100 MG in SODIUM CHLORIDE 0.9% 100 ML IV SCH (10:30)
[2017-09-29] MEDS ORDERED: ACETAMINOPHEN SUPPOSITORY 650 MG SUPP RECTAL PRN (10:30)
[2017-09-29] MEDS ORDERED: SODIUM CHLORIDE 0.9% 1,000 ML IV SCH (10:30)
[2017-09-29] MEDS ORDERED: ONDANSETRON 4 MG/2 ML VIAL IVP PRN (10:30)
[2017-09-29] MEDS ORDERED: ATROPINE OPHTH SOLN 1% 5ML BTL SUBLINGUAL PRN (10:30)
[2017-09-29] MEDS ORDERED: BISACODYL 10 MG SUPP RECTAL PRN (10:40)
[2017-09-29] MEDS ORDERED: SCOPOLAMINE 1.5MG/72HR PATCH TRANSDERM SCH (11:00)
--- NOTE | 2017-09-29 17:39 | DS ---
DISCHARGE SUMMARY DATE OF ADMISSION: 09/29/17. DATE OF EXPIRATION: 09/29/17 FINAL DIAGNOSES: 1. Metastatic breast cancer. 2. Pain control. HOSPITAL COURSE: This patient was admitted to the hospice service for pain symptom control for uncontrolled pain with IV morphine. The patient was comfortable when she per family. Copy to Dr. Centeno. JOSE / CODY: [id number] /
== END 2017-09-29 13:15 | disposition expired | DRG 947 ==
LOC: 5ONC 09:58
PROVIDERS: ADMIT Hospitalist; ATTEND Hospitalist
DX: G89.3 Neoplasm related pain (acute) (chronic) (principal); G93.41 Metabolic encephalopathy; C78.7 Secondary malignant neoplasm of liver and intrahepatic bile duct; C79.51 Secondary malignant neoplasm of bone; D69.6 Thrombocytopenia, unspecified; E88.09 Other disorders of plasma-protein metabolism, not elsewhere classified; Z85.3 Personal history of malignant neoplasm of breast; R73.9 Hyperglycemia, unspecified; D63.0 Anemia in neoplastic disease; E86.0 Dehydration; E87.5 Hyperkalemia; Z51.5 Encounter for palliative care; Z82.49 Family history of ischemic heart disease and other diseases of the circulatory system